=== PATIENT | male | born 1980 | race American Indian/Alaskan Native ===

== ENCOUNTER 2017-10-01 11:11 | Inpatient (IN) | payer OTHER, MEDICAID ==
[2017-10-01 11:25] VITALS: BMI 22.8
--- NOTE | 2017-10-01 11:34 | ED PDOC ---
Arrival/HPI - General Time Seen by Provider: 10/01/17 11:31 Historian: Patient - History of Present Illness Narrative History of Present Illness (Text): 10/01/17 11:46 Patient is a 37 yo male presents to the Emergency Department reportedly after having a witnessed seizure at his worksite prior to arrival. History is obtained from ambulance personnel. Reportedly the patient fell to the ground and "was shaking for 30 seconds". Patient currently denies any headache or chest pain or shortness of breath. Denies any numbness or weakness. He denies shakiness or tremors. States that he was "fine" when he went to work although states he did not eat or drink this morning. He states that he does smoke cigarettes and drinks alcohol, last drink he states was "this past weekend". Denies any prior medical history, specifically he denies prior history of seizures. Time/Duration: Prior to Arrival Symptom Onset: Sudden Past Medical History - Provider Review Nursing Documentation Reviewed: Yes Family/Social History - Physician Review Nursing Documentation Reviewed: Yes Family/Social History: No Known Family HX Allergies/Home Meds Allergies/Adverse Reactions: Allergies No Known Allergies Allergy (Verified 10/01/17 11:27) Home Medications: Home Meds Medication Instructions Recorded Confirmed No Known Home Med 10/01/17 10/01/17 Review of Systems - Review of Systems Constitutional: absent: Fatigue, Fevers Eyes: absent: Vision Changes ENT: absent: Hearing Changes Respiratory: absent: SOB Cardiovascular: absent: Chest Pain, Palpitations, Edema, RAYA Gastrointestinal: absent: Abdominal Pain, Nausea, Vomiting, Hematochezia, Hematemesis Genitourinary Male: absent: Dysuria Musculoskeletal: absent: Back Pain Skin: absent: Rash Neurological: Seizure. absent: Headache, Dizziness, Focal Weakness, Facial Droop Hemo/Lymphatic: absent: Easy Bleeding, Easy Bruising Psychiatric: absent: Depression, Suicidal Ideation Physical Exam Vital Signs Reviewed: Yes Vital Signs Temp Pulse Resp BP Pulse Ox 10/01/17 13:43 98 H 18 137/92 H 98 10/01/17 11:22 98.2 F 72 18 136/83 97 Temperature: Afebrile Respiratory Rate: Normal Mental Status: Positive for: other (oriented to person, place, not time, states year is "2009") Finger Stick Blood Glucose: 105 - Systems Exam Head: Present: Abrasion (abrasion to posterior scalp, no foreign body or bony deformity noted) Pupils: Present: PERRL Extroacular Muscles: Present: EOMI Ears: No: Erythema Mouth: Present: Other (no tongue laceration noted) Pharnyx: No: ERYTHEMA Neck: Present: Normal Range of Motion. No: Meningeal Signs, MIDLINE TENDERNESS Respiratory/Chest: Present: Clear to Auscultation. No: Respiratory Distress Cardiovascular: Present: Regular Rate and Rhythm, Murmurs Abdomen: No: Tenderness, Peritoneal Signs Rectal: No: Gross Blood Back: No: CVA Tenderness, Midline Tenderness Upper Extremity: No: Cyanosis, Edema, Deformity Lower Extremity: Present: NORMAL PULSES, Neurovascularly Intact. No: Edema, CALF TENDERNESS Neurological: Present: Motor Func Grossly Intact, Other (tremulous). No: Norm Deep Tendon Reflexes (hyperreflexive), Memory Normal Skin: Present: Abrasion Psychiatric: Present: Alert. No: Oriented x 3, Normal Concentration, Suicidal Ideation, Homicidal Ideation, Lethargic Medical Decision Making ED Course and Treatment: Patient evaluated upon arrival to ED. History obtained from ambulance personnel and patient. Patient cannot recollect event. States he felt "fine" this morning prior to going to work. He appears tremulous on initial exam. Denies any past medical history. Denies any prior seizures. Denies any allergies. Denies taking any medication currently. He states last drink of alcohol was this weekend. Ambulance personnel report that a carbon monoxide detector had possibly gone off at work today, although I have been unable to verify this. Patient placed on oxygen, although currently no respiratory distress, no hypoxia. He denies headache or chest pain or shortness of breath or shakiness. With permission, patient has allowed me to speak to his who he was talking on phone with during initial part of my exam. She expresses concern that patient has been drinking heavier recently but has not had a drink for several days. She also reports that he has no prior history of seizures. Given differential diagnosis that includes but is not limited to alcohol withdrawal seizure, iv ordered, ativan ordered, labs and CT ordered. Will continue serial exams. 10/01/17 12:12 Carboxyhemoglobin 4.9. Patient is alert and awake denies headache or visual symptoms. PATIENT IS A SMOKER, considered when evaluating this result, will continue oxygen, serial exams. 10/01/2017 13:02 Chest X-ray IMPRESSION: No active disease. Dictator: Erich Sellers MD 10/01/2017 13:[address] IMPRESSION: No intracranial hemorrhage. Right posterior parietal scalp contusion. Otherwise unremarkable examination. Dictator: Vasu Bonner MD 10/01/17 15:20 With patient's permission, patient's and [id number] updated with results and treatment plan. On re-exam, patient denies any pain or discomfort, but admits to drinking heavily daily. He has persistent but improved tremulousness. Patient had scalp wound irrigated with normal saline. Tetanus ordered. Wound superficial, no deep lacerations noted. Dressing applied. Case discussed with hospitalist, accepts admission to hospitalist service by DR. Cunningham. Patient on re-exam has no focal motor or sensory deficits. No slurred speech. Alert. No facial droop. No acute abdominal pain. Now oriented to person/place and time. - Lab Interpretations Lab Results: 10/01/17 11:40 10/01/17 11:40 Lab Results 10/01/17 12:02: pCO2 28 L, pO2 85.0, HCO3 15.5 L, ABG pH 7.35, ABG Total CO2 16.4 L, ABG O2 Saturation 97.9, ABG O2 Content 17.9, ABG Base Excess -8.6 L, ABG Hemoglobin 13.8, ABG Carboxyhemoglobin 4.9 H, POC ABG HHb (Measured) 2.0, ABG Methemoglobin 1.1, ABG O2 Capacity 18.3, Hgb O2 Saturation 92.0 L, FiO2 21.0 10/01/17 11:40: Salicylates < 1 L 10/01/17 11:40: PT 11.5, INR 1.00, APTT 28.9 10/01/17 11:40: WBC 6.3, RBC 4.67, Hgb 14.7, Hct 42.2, MCV 90.4, MCH 31.5, MCHC 34.8, RDW 14.8 H, Plt Count 117 L, MPV 9.7, Gran % 65.9, Lymph % (Auto) 21.7 L, [place] % (Auto) 9.3 H, Eos % (Auto) 1.8, Baso % (Auto) 1.3, Gran # 4.14, Lymph # ( Auto) 1.4, [place] # (Auto) 0.6, Eos # (Auto) 0.1, Baso # (Auto) 0.08 10/01/17 11:40: Acetaminophen < 10.0 L 10/01/17 11:40: Alcohol, Quantitative 88 H 10/01/17 11:40: Sodium 141, Potassium 3.2 L, Chloride 99, Carbon Dioxide 17 L, Anion Gap 28 H, BUN 7, Creatinine 1.1, Est GFR ( Amer) > 60, Est GFR (Non -Af Amer) > 60, Random Glucose 100, Calcium 9.4, Magnesium 2.0, Total Bilirubin 1.1, AST 315 H, ALT 143 H, Alkaline Phosphatase 102, Lactate Dehydrogenase 1145 H, Total Creatine Kinase 534 H, CK-MB (CK-2) 0.7, CK-MB (CK-2) % Cancelled, Troponin I < 0.01, Total Protein 7.6, Albumin 4.9 H, Globulin 2.6, Albumin/ Globulin Ratio 1.9 H, Amylase 107, Lipase 576 H I have reviewed the lab results: Yes - RAD Interpretation Radiology Orders: 10/01/17 11:37 HEAD W/O CONTRAST [CT] Stat 10/01/17 11:39 CHEST PORTABLE [RAD] Stat - Medication Orders Current Medication Orders: Acetaminophen (Tylenol 325mg Tab) 650 mg PO Q6 PRN PRN Reason: Pain, moderate (4-7) Famotidine (Pepcid) 20 mg PO BID [facility] Folic Acid (Folic Acid) 1 mg PO DAILY [facility] Heparin Sodium (Porcine) (Heparin) 5,000 units SC Q8 ANDREZ PRN Reason: Protocol Last Admin: 10/01/17 14:28 Dose: 5,000 units Subcutaneous Administrations Document 10/01/17 14:28 SRE (Rec: 10/01/17 14:28 SRE [id number]) Injection Site MAR Injection Site Left Abdomen Charges for Administration # of Subcutaneous Administrations 1 Folic Acid 1 mg/ Thiamine HCl 100 mg/ Multivitamins/Vitamin C 10 ml/ Dextrose 1 ,011.2 mls @ 100 mls/hr IV .Q10H7M [facility] Last Admin: 10/01/17 15:01 Dose: 100 mls/hr eMAR Start Stop Document 10/01/17 15:01 SRE (Rec: 10/01/17 15:01 SRE [id number]) Intravenous Solution Start Date 10/01/17 Start Time 15:01 Lorazepam (Ativan) 2 mg IVP Q6H ANDREZ PRN Reason: Protocol Last Admin: 10/01/17 14:27 Dose: 2 mg IVP Administration Document 10/01/17 14:27 SRE (Rec: 10/01/17 14:27 SRE [id number]) Charges for Administration # of IVP Administrations 1 Lorazepam (Ativan) 2 mg IVP Q3H PRN; Protocol PRN Reason: Anxiety Multivitamins (Thera Tab) 1 tab PO 0800 ANDREZ Nicotine (Nicoderm Cq) 1 patch TD DAILY ANDREZ Last Admin: 10/01/17 15:00 Dose: 1 patch MAR Transdermal Patch Site Document 10/01/17 15:00 SRE (Rec: 10/01/17 15:01 SRE [id number]) Transdermal Patch Site Transdermal Patch Site Left Outer Upper Arm Ondansetron HCl (Zofran Inj) 4 mg IVP Q6 PRN PRN Reason: Nausea/Vomiting Thiamine HCl (Vitamin B1 Tab) 50 mg PO DAILY ANDREZ Discontinued Medications Sodium Chloride (Sodium Chloride 0.9%) 500 mls @ 1,000 mls/hr IV .Q30M STA Stop: 10/01/17 12:11 Last Admin: 10/01/17 11:55 Dose: 1,000 mls/hr eMAR Start Stop Document 10/01/17 11:55 SRE (Rec: 10/01/17 11:55 SRE [id number]) Intravenous Solution Start Date 10/01/17 Start Time 11:55 End Date 10/01/17 End time 12:55 Total Infusion Time 60 Lorazepam (Ativan) 1 mg IVP ONCE ONE Stop: 10/01/17 11:43 Last Admin: 10/01/17 11:52 Dose: 1 mg IVP Administration Document 10/01/17 11:52 SRE (Rec: 10/01/17 11:52 SRE [id number]) Charges for Administration # of IVP Administrations 1 Lorazepam (Ativan) 1 mg IVP ONCE ONE Stop: 10/01/17 12:33 Last Admin: 10/01/17 12:47 Dose: 1 mg IVP Administration Document 10/01/17 12:47 SRE (Rec: 10/01/17 12:47 SRE [id number]) Charges for Administration # of IVP Administrations 1 Potassium Chloride (K-Dur 20 Meq Er Tab) 40 meq PO STAT STA Stop: 10/01/17 12:11 Last Admin: 10/01/17 12:46 Dose: 40 meq Tetanus/Reduced Diphtheria/Acell Pertussis (Boostrix Vaccine Inj) 0.5 ml IM .ONCE ONE Stop: 10/01/17 14:36 - Scribe Statement The provider has reviewed the documentation as recorded by the July Bowden Provider Scribe Attestation: All medical record entries made by the July were at my direction and personally dictated by me. I have reviewed the chart and agree that the record accurately reflects my personal performance of the history, physical exam, medical decision making, and the department course for this patient. I have also personally directed, reviewed, and agree with the discharge instructions and disposition. Disposition/Present on Arrival - Present on Arrival Any Indicators Present on Arrival: No - Disposition Have Diagnosis and Disposition been Completed?: Yes Diagnosis: Seizure, Alcohol withdrawal, Scalp abrasion Disposition: HOSPITALIZED Disposition Time: 14:00 Patient Plan: Admission, Telemetry Condition: SERIOUS
[2017-10-01] MEDS ORDERED: Sodium Chloride 0.9% 500 ML IV STA (11:42)
[2017-10-01 11:59] LABS: BASO # 0.08 K/mm3 (0.0-2.0); BASO % 1.3 % (0.0-3.0); EOS # 0.1 (0.0-0.7); EOS % 1.8 % (1.5-5.0); GRAN # 4.14 (1.4-6.5); GRAN % 65.9 % (50.0-68.0); HEMOGLOBIN 14.7 g/dL (14.0-18.0); LYMPH # 1.4 (1.2-3.4); LYMPH % 21.7 % (22.0-35.0); MEAN CELL VOLUME 90.4 fl (80.0-105.0); MEAN CORPUSCULAR HEMOGLOBIN 31.5 pg (25.0-35.0); MEAN CORPUSCULAR HGB CONC 34.8 g/dl (31.0-37.0); MEAN PLATELET VOLUME 9.7 fl (7.0-11.0); MONO # 0.6 (0.1-0.6); MONO % 9.3 % (1.0-6.0); RBC 4.67 10^6/uL (3.5-6.1); RED CELL DISTRIBUTION WIDTH 14.8 % (11.5-14.5); WHITE BLOOD COUNT 6.3 10^3/ul (4.5-11.0)
[2017-10-01 12:06] LABS: ARTERIAL BLOOD GAS HCO3 15.5 mmol/L (21-28); ARTERIAL BLOOD GAS HEMOGLOBIN 13.8 g/dL (11.7-17.4); ARTERIAL BLOOD GAS O2 CAPACITY 18.3 mL/dl (16-24); ARTERIAL BLOOD GAS O2 CONTENT 17.9 ML/dl (15-23); ARTERIAL BLOOD GAS O2 SAT 97.9 % (95-98); ARTERIAL BLOOD GAS PCO2 28 mm/Hg (35-45); ARTERIAL BLOOD GAS PH 7.35 (7.35-7.45); ARTERIAL BLOOD GAS TCO2 16.4 mmol.L (22-28)
[2017-10-01 12:08] LABS: ALB/GLOB RATIO 1.9 (1.1-1.8); ALBUMIN 4.9 g/dL (3.0-4.8); ALT/SGPT 143 U/L (7-56); AMYLASE 107 U/L (35-125); AST/SGOT 315 U/L (17-59); BLOOD UREA NITROGEN 7 mg/dL (7-21); CALCIUM 9.4 mg/dL (8.4-10.5); GFR AFRICAN-AMERICAN > 60; GFR NON-AFRICAN AMERICAN > 60; LIPASE 576 U/L (23-300)
[2017-10-01] MEDS ORDERED: Potassium Chloride 20 mEq ER Tab PO STA (12:10)
[2017-10-01 12:19] LABS: TROPONIN I < 0.01 ng/mL
[2017-10-01 12:34] LABS: CK-MB 0.7 ng/mL (0.0-3.6)
[2017-10-01 12:50] LABS: PARTIAL THROMBOPLASTIN TIME 28.9 Seconds (25.1-36.5); PROTHROMBIN TIME 11.5 SECONDS (9.4-12.5)
--- NOTE | 2017-10-01 13:03 | RAD ---
HISTORY: seizure COMPARISON: No prior. FINDINGS: LUNGS: No active pulmonary disease. PLEURA: No significant pleural effusion identified, no pneumothorax apparent. CARDIOVASCULAR: Normal. OSSEOUS STRUCTURES: No significant abnormalities. VISUALIZED UPPER ABDOMEN: Normal. OTHER FINDINGS: None. IMPRESSION: No active disease.
--- NOTE | 2017-10-01 13:14 | CT ---
PROCEDURE: CT HEAD WITHOUT CONTRAST. HISTORY: new onset seizure, posterior head trauma COMPARISON: None available. TECHNIQUE: Axial computed tomography images were obtained through the head/brain without intravenous contrast. Radiation dose: Total exam DLP = 869.57 mGy-cm. This CT exam was performed using one or more of the following dose reduction techniques: Automated exposure control, adjustment of the mA and/or kV according to patient size, and/or use of iterative reconstruction technique. FINDINGS: HEMORRHAGE: No intracranial hemorrhage. BRAIN: No mass effect or edema. No atrophy or chronic microvascular ischemic changes. VENTRICLES: Unremarkable. No hydrocephalus. CALVARIUM: No calvarial fracture. There is a scalp contusion in the right posterior parietal region. PARANASAL SINUSES: Unremarkable as visualized. No significant inflammatory changes. MASTOID AIR CELLS: Unremarkable as visualized. No inflammatory changes. OTHER FINDINGS: None. IMPRESSION: No intracranial hemorrhage. Right posterior parietal scalp contusion. Otherwise unremarkable examination.
--- NOTE | 2017-10-01 13:24 | CP.PCM.HP ---
<Jaye Pearce - Last Filed: 10/01/17 14:10> History of Present Illness - History of Present Illness History of Present Illness: IM H & P for Dr. Catalina Pearce, PGY-1 Pt S & E at bedside with attending. History as per pt and pt's spouse, EMR. 37M w/PMH sig for ETOH abuse admitted s/p witnessed seizure at job site. Pt left home for job site at 0830am this morning, no problems. 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 EMS was called. Admits to LOC- does not remember event or what lead up to the event, next thing pt remember is being in ambulance. Admits to Left anterior shoulder pain, baseline shaking of limbs (increased from baseline now), blurry vision, URI symptoms (cough, rhinorhea), hunger, numbness of feet, increased lethargy (as per spouse), nausea (as per spouse). Denies Chest pain, SOB, palpitations, change in bowel or bladder habits, Other complaints. PMH: Denies PSH: Denies All: NKDA SH: Admits to tobacco use - #5-6 daily x 15 yrs; admits to ETOH use- #2-3 beers + hard liquour (2 bottles) daily x 25 yr; denies illicit drug use Present on Admission - Present on Admission Any Indicators Present on Admission: No History of DVT/PE: No History of Uncontrolled Diabetes: No Urinary Catheter: No Decubitus Ulcer Present: No Review of Systems - Review of Systems All systems: reviewed and no additional remarkable complaints except - Constitutional Constitutional: Headache. absent: Chills, Fever, Weakness - EENT Eyes: Blurred Vision, Change in Vision Ears: absent: Dizziness Nose/Mouth/Throat: Mouth Pain. absent: Tongue Swelling - Cardiovascular Cardiovascular: absent: Chest Pain, Leg Edema, Palpitations - Respiratory Respiratory: Cough - Gastrointestinal Gastrointestinal: Nausea. absent: Abdominal Pain, Change in Bowel Habits, Constipation, Diarrhea, Hematemesis, Vomiting - Genitourinary Genitourinary: absent: Change in Urinary Stream, Dysuria - Musculoskeletal Musculoskeletal: Numbness (feet). absent: Back Pain - Integumentary Integumentary: New Lesions (posterior scalp, lower inner lip small laceration) - Neurological Neurological: Numbness Past Patient History - Past Social History Smoking Status: Light Smoker < 10 Cigarettes Daily - PSYCHIATRIC Hx Substance Use: No - SURGICAL HISTORY Hx Surgeries: No Meds Allergies/Adverse Reactions: Allergies Allergy/AdvReac Type Severity Reaction Status Date / Time No Known Allergies Allergy Verified 10/01/17 11:27 Physical Exam - Constitutional Appears: Non-toxic, No Acute Distress - Head Exam Head Exam: absent: ATRAUMATIC, NORMAL INSPECTION, NORMOCEPHALIC Additional comments: 3-4 superficial lacerations of posterior scalp, average length 1cm - Eye Exam Eye Exam: EOMI, Normal appearance, Nystagmus - ENT Exam ENT Exam: Mucous Membranes Moist. absent: Normal Exam (small laceration of inner lower lip- superficial) - Neck Exam Neck exam: Positive for: Full Rom, Normal Inspection - Respiratory Exam Respiratory Exam: Clear to Auscultation Bilateral, NORMAL BREATHING PATTERN - Cardiovascular Exam Cardiovascular Exam: REGULAR RHYTHM, +S1, +S2 - GI/Abdominal Exam GI & Abdominal Exam: Hernia (small umbilical), Normal Bowel Sounds, Soft. absent: Distended, Tenderness - Extremities Exam Extremities exam: Positive for: normal capillary refill, tenderness (right anterior shoulder ). Negative for: normal inspection, pedal edema - Back Exam Back exam: NORMAL INSPECTION. absent: CVA tenderness (L), CVA tenderness (R), paraspinal tenderness, vertebral tenderness - Neurological Exam Neurological exam: Alert, CN II-XII Intact, Oriented x3 - Psychiatric Exam Psychiatric exam: Normal Affect, Normal Mood - Skin Skin Exam: Dry, Intact, Normal Color, Warm Results - Vital Signs Recent Vital Signs: Last Vital Signs Temp 98.2 F 10/01/17 11:22 Pulse 72 10/01/17 11:22 Resp 18 10/01/17 11:22 BP 136/83 10/01/17 11:22 Pulse Ox 97 10/01/17 11:22 - Labs Result Diagrams: 10/01/17 11:40 10/01/17 11:40 Assessment & Plan - Assessment and Plan (Free Text) Assessment: 37M w/PMH sig for ETOH abuse s/p witnessed seizure w/LOC Plan: Seizure in setting of ETOH abuse Banana bag MV/folic acid/B1 vitamin to be started 10/02 Ativan 2mg Q6H ANDREZ, 2mg Q3H PRN Zofran PRN FU UDS FU EEG NPO CIWA protocol Fall risk protocol Aspiration precautions Seizure precautions CT brain negative for hemorrhage, Right posterior parietal scalp contusion Neurology consulted Left shoulder pain Fu L shoulder x-ray Tylenol PRN Nicotine abuse Nicotine patch Monitor GI/DVT ppx SCD Heparin Pepcid Dispo Admit to tele VS Q6H Neuro checks Q4H Resuscitation status: Full PT eval on 10/02 DW attending Portia, PGY-1 - Date & Time Date: 10/01/17 Time: 14:14 Decision To Admit - Pt Status Changed To: Hospital Disposition Of: Inpatient Admission - Admit Certification Admit to Inpatient:: After my assessment, the patient will require hospitalization for at least two midnights. This is because of the severity of symptoms shown, intensity of services needed, and/or the medical risk in this patient being treated as an outpatient. - . Bed Request Type: Telemetry Admitting Physician: Jj Cunningham <Jj Cunningham - Last Filed: 10/02/17 07:47> Results - Vital Signs Recent Vital Signs: Last Vital Signs Temp 99.3 F 10/02/17 00:01 Pulse 99 H 10/02/17 02:00 Resp 18 10/02/17 00:01 BP 165/78 H 10/02/17 00:01 Pulse Ox 97 10/01/17 18:00 - Labs Result Diagrams: 10/02/17 05:30 10/02/17 05:30 Labs: Laboratory Results - last 24 hr 10/01/17 10/01/17 10/02/17 13:53 13:53 05:30 WBC 6.7 RBC 4.81 Hgb 15.2 Hct 42.4 MCV 88.1 MCH 31.6 MCHC 35.8 RDW 14.4 Plt Count 104 L MPV 9.9 Gran % 71.8 H Lymph % (Auto) 12.5 L [place] % (Auto) 13.1 H Eos % (Auto) 1.9 Baso % (Auto) 0.7 Gran # 4.81 Lymph # (Auto) 0.8 L [place] # (Auto) 0.9 H Eos # (Auto) 0.1 Baso # (Auto) 0.05 Sodium Potassium Chloride Carbon Dioxide Anion Gap BUN Creatinine Est GFR ( Amer) Est GFR (Non-Af Amer) Random Glucose Calcium Magnesium Total Bilirubin AST ALT Alkaline Phosphatase Total Protein Albumin Globulin Albumin/Globulin Ratio Urine Color Yellow Urine Appearance Turbid Urine pH 6.0 Ur Specific [place] 1.025 Urine Protein 100 H Urine Glucose (UA) Negative Urine Ketones >=80 Urine Blood Small H Urine Nitrate Negative Urine Bilirubin Negative Urine Urobilinogen 1.0 H Ur Leukocyte Esterase Negative Urine RBC 0 - 2 Urine WBC 0 - 2 Urine Opiates Screen Negative Urine Methadone Screen Negative Ur Barbiturates Screen Negative Ur Phencyclidine Scrn Negative Ur Amphetamines Screen Negative U Benzodiazepines Scrn Negative U Oth Cocaine Metabols Negative U Cannabinoids Screen Negative 10/02/17 10/02/17 05:30 06:00 WBC RBC Hgb Hct MCV MCH MCHC RDW Plt Count MPV Gran % Lymph % (Auto) [place] % (Auto) Eos % (Auto) Baso % (Auto) Gran # Lymph # (Auto) [place] # (Auto) Eos # (Auto) Baso # (Auto) Sodium 136 Potassium 3.2 L Chloride 96 L Carbon Dioxide 25 Anion Gap 19 BUN 4 L Creatinine 0.8 Est GFR ( Amer) > 60 Est GFR (Non-Af Amer) > 60 Random Glucose 102 Calcium 9.0 Magnesium 2.1 Total Bilirubin 1.6 H AST 226 H D ALT 123 H Alkaline Phosphatase 96 Total Protein 7.6 Albumin 4.6 Globulin 2.9 Albumin/Globulin Ratio 1.6 Urine Color Urine Appearance Urine pH Ur Specific [place] Urine Protein Urine Glucose (UA) Urine Ketones Urine Blood Urine Nitrate Urine Bilirubin Urine Urobilinogen Ur Leukocyte Esterase Urine RBC Urine WBC Urine Opiates Screen Urine Methadone Screen Ur Barbiturates Screen Ur Phencyclidine Scrn Ur Amphetamines Screen U Benzodiazepines Scrn U Oth Cocaine Metabols U Cannabinoids Screen Attending/Attestation - Attestation I have personally seen and examined this patient.: Yes I have fully participated in the care of the patient.: Yes I have reviewed all pertinent clinical information: Yes Notes (Text): 10/02/17 07:44 Attending note; Patient seen and examined with resident in ER. Patient is a 37-year-old male admitted after having a witnessed seizure at work. Patient with a history of long-standing alcohol abuse. Patient was initially postictal in the ER. Had laceration in the back of the head. CT head is negative. Currently patient is alert and awake. Able to give some history. Not in any acute distress. Patient started on standing dose of IV Ativan with when necessary ordered. Continue to monitor closely in telemetry with CIWA protocol. Nothing by mouth. Continue IV fluids. Seizure/fall/aspiration precaution. Complete alcohol cessation is strongly advised. Neurology evaluation requested. Case discussed with patient's in detail. Upon discharge the patient will follow up with PMD in [place].
[2017-10-01 13:56] LABS: URINE BILIRUBIN NEGATIVE (NEGATIVE); URINE BLOOD SMALL (NEGATIVE); URINE GLUCOSE (UA) NEGATIVE (NEGATIVE); URINE LEUKOCYTE ESTERASE NEGATIVE Leu/uL (NEGATIVE); URINE PROTEIN 100 mg/dL (<30 mg/dL)
[2017-10-01 13:57] LABS: URINE APPEARANCE TURBID (CLEAR); URINE COLOR YELLOW (YELLOW)
[2017-10-01 14:10] LABS: URINE RBC 0 - 2 /hpf (0-2); URINE WBC 0 - 2 /hpf (0-6)
[2017-10-01] MEDS ORDERED: Folic Acid 1 MG, Thiamine 100 MG, Multivitamin (MVI) 10 ML in Dextrose 5% In Water 1,00... IV SCH (14:15)
[2017-10-01 14:16] LABS: BARBITURATES, UR NEGATIVE (NEGATIVE); BENZODIAZEPINES, UR NEGATIVE (NEGATIVE); OPIATES, UR NEGATIVE (NEGATIVE); PHENCYCLIDINE, UR NEGATIVE (NEGATIVE)
[2017-10-01] MEDS ORDERED: TDAP Vaccine 0.5 mL Syr IM ONE (14:35)
--- NOTE | 2017-10-01 16:53 | RAD ---
PROCEDURE: Radiographs of the Left Shoulder HISTORY: left shoulder pain COMPARISON: No prior. FINDINGS: BONES: Normal. No fracture. JOINTS: Normal. Glenohumeral and acromioclavicular joints preserved. No osteoarthritis. SOFT TISSUES: Normal. OTHER FINDINGS: None. IMPRESSION: Normal radiographs of the left shoulder.
--- NOTE | 2017-10-01 23:14 | CARD ---
APPROVED REPORT EKG Measurement Heart [id number] <Conclusion> Normal sinus rhythm Normal ECG
[2017-10-02] MEDS ORDERED: DiphenhydrAMINE 50 mg/ml Inj IVP ONE (06:08)
[2017-10-02 06:11] LABS: BASO # 0.05 K/mm3 (0.0-2.0); BASO % 0.7 % (0.0-3.0); EOS # 0.1 (0.0-0.7); EOS % 1.9 % (1.5-5.0); GRAN # 4.81 (1.4-6.5); GRAN % 71.8 % (50.0-68.0); HEMOGLOBIN 15.2 g/dL (14.0-18.0); LYMPH # 0.8 (1.2-3.4); LYMPH % 12.5 % (22.0-35.0); MEAN CELL VOLUME 88.1 fl (80.0-105.0); MEAN CORPUSCULAR HEMOGLOBIN 31.6 pg (25.0-35.0); MEAN CORPUSCULAR HGB CONC 35.8 g/dl (31.0-37.0); MEAN PLATELET VOLUME 9.9 fl (7.0-11.0); MONO # 0.9 (0.1-0.6); MONO % 13.1 % (1.0-6.0); RBC 4.81 10^6/uL (3.5-6.1); RED CELL DISTRIBUTION WIDTH 14.4 % (11.5-14.5); WHITE BLOOD COUNT 6.7 10^3/ul (4.5-11.0)
[2017-10-02 06:21] LABS: ALB/GLOB RATIO 1.6 (1.1-1.8); ALBUMIN 4.6 g/dL (3.0-4.8); ALT/SGPT 123 U/L (7-56); AST/SGOT 226 U/L (17-59); BLOOD UREA NITROGEN 4 mg/dL (7-21); GFR AFRICAN-AMERICAN > 60; GFR NON-AFRICAN AMERICAN > 60
[2017-10-02] MEDS ORDERED: Potassium Chloride 20 mEq ER Tab PO STA (06:42)
--- NOTE | 2017-10-02 08:18 | CP.PCM.CON ---
<Davis Laneima - Last Filed: 10/02/17 17:49> History of Present Illness - History of Present Illness History of Present Illness: Neurology Consult note for Dr. Jordan Reason for consult: seizures Please note history is limited as patient is agitated and altered due to alcohol withdrawal 37yo male PMHx EtOH abuse admitted for witnessed seizure at his job site. 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 As per EMR patient did experience LOC but did not recall any aura leading up to the event but did remember being in the ambulance. As per ED note patient's last drink was over the weekend and the last time he was at baseline was the morning of admission prior to going to work. ROS unobtainable secondary to patient condition. PMHx: EtOH abuse PSurgHx: unobtainable ALL: NKDA Meds: pls see chart SocHx: Admits to tobacco use - #5-6 daily x 15 yrs; admits to ETOH use- #2-3 beers + hard liquor (2 bottles) daily x 25 yr; denies illicit drug use FamHx: unobtainable Review of Systems - Review of Systems Systems not reviewed;Unavailable: Altered Mental Status Past Patient History - Past Social History Smoking Status: Heavy Smoker > 10 Cigarettes Daily - PULMONARY Other/Comment: smokes >10 cigarettes a day - MUSCULOSKELETAL/RHEUMATOLOGICAL Hx Falls: Yes - PSYCHIATRIC Hx Substance Use: No - SURGICAL HISTORY Hx Surgeries: No Meds Allergies/Adverse Reactions: Allergies Allergy/AdvReac Type Severity Reaction Status Date / Time No Known Allergies Allergy Verified 10/01/17 11:27 - Medications Medications: Current Medications Acetaminophen (Tylenol 325mg Tab) 650 mg PO Q6 PRN PRN Reason: Pain, moderate (4-7) Famotidine (Pepcid) 20 mg PO BID [facility] Last Admin: 10/01/17 18:00 Dose: Not Given Folic Acid (Folic Acid) 1 mg PO DAILY [facility] Heparin Sodium (Porcine) (Heparin) 5,000 units SC Q8 ANDREZ PRN Reason: Protocol Last Admin: 10/02/17 07:53 Dose: 5,000 units Folic Acid 1 mg/ Thiamine HCl 100 mg/ Multivitamins/Vitamin C 10 ml/ Potassium Chloride 40 meq/ Dextrose 1,031.2 mls @ 100 mls/hr IV .[id number] [facility] Potassium Chloride (Potassium Chloride 10 Meq/100 Ml) 10 meq in 100 mls @ 50 mls/hr IVPB ONCE ONE Stop: 10/02/17 09:37 Lorazepam (Ativan) 2 mg IVP Q3H PRN; Protocol PRN Reason: Anxiety Last Admin: 10/02/17 05:35 Dose: 2 mg Lorazepam (Ativan) 2 mg IVP Q6 ANDREZ PRN Reason: Protocol Multivitamins (Thera Tab) 1 tab PO 0800 [facility] Nicotine (Nicoderm Cq) 1 patch TD DAILY [facility] Last Admin: 10/01/17 15:00 Dose: 1 patch Ondansetron HCl (Zofran Inj) 4 mg IVP Q6 PRN PRN Reason: Nausea/Vomiting Last Admin: 10/01/17 15:56 Dose: 4 mg Potassium Chloride (K-Dur 20 Meq Er Tab) 40 meq PO ONCE ONE Stop: 10/02/17 11:46 Thiamine HCl (Vitamin B1 Tab) 50 mg PO DAILY [facility] Physical Exam - Constitutional Appears: In Acute Distress, Combative, Agitated, Confused, Other (physical exam unobtainable as patient is going through withdrawals) Results - Vital Signs Recent Vital Signs: Last Vital Signs Temp 99.6 F 10/02/17 06:00 Pulse 114 H 10/02/17 06:00 Resp 18 10/02/17 06:00 BP 168/114 H 10/02/17 06:00 Pulse Ox 97 10/02/17 06:00 - Labs Result Diagrams: 10/02/17 05:30 10/02/17 05:30 Labs: Laboratory Results - last 24 hr 10/01/17 10/01/17 10/02/17 13:53 13:53 05:30 WBC 6.7 RBC 4.81 Hgb 15.2 Hct 42.4 MCV 88.1 MCH 31.6 MCHC 35.8 RDW 14.4 Plt Count 104 L MPV 9.9 Gran % 71.8 H Lymph % (Auto) 12.5 L [place] % (Auto) 13.1 H Eos % (Auto) 1.9 Baso % (Auto) 0.7 Gran # 4.81 Lymph # (Auto) 0.8 L [place] # (Auto) 0.9 H Eos # (Auto) 0.1 Baso # (Auto) 0.05 Sodium Potassium Chloride Carbon Dioxide Anion Gap BUN Creatinine Est GFR ( Amer) Est GFR (Non-Af Amer) Random Glucose Calcium Magnesium Total Bilirubin AST ALT Alkaline Phosphatase Total Protein Albumin Globulin Albumin/Globulin Ratio Urine Color Yellow Urine Appearance Turbid Urine pH 6.0 Ur Specific [place] 1.025 Urine Protein 100 H Urine Glucose (UA) Negative Urine Ketones >=80 Urine Blood Small H Urine Nitrate Negative Urine Bilirubin Negative Urine Urobilinogen 1.0 H Ur Leukocyte Esterase Negative Urine RBC 0 - 2 Urine WBC 0 - 2 Urine Opiates Screen Negative Urine Methadone Screen Negative Ur Barbiturates Screen Negative Ur Phencyclidine Scrn Negative Ur Amphetamines Screen Negative U Benzodiazepines Scrn Negative U Oth Cocaine Metabols Negative U Cannabinoids Screen Negative 10/02/17 10/02/17 05:30 06:00 WBC RBC Hgb Hct MCV MCH MCHC RDW Plt Count MPV Gran % Lymph % (Auto) [place] % (Auto) Eos % (Auto) Baso % (Auto) Gran # Lymph # (Auto) [place] # (Auto) Eos # (Auto) Baso # (Auto) Sodium 136 Potassium 3.2 L Chloride 96 L Carbon Dioxide 25 Anion Gap 19 BUN 4 L Creatinine 0.8 Est GFR ( Amer) > 60 Est GFR (Non-Af Amer) > 60 Random Glucose 102 Calcium 9.0 Magnesium 2.1 Total Bilirubin 1.6 H AST 226 H D ALT 123 H Alkaline Phosphatase 96 Total Protein 7.6 Albumin 4.6 Globulin 2.9 Albumin/Globulin Ratio 1.6 Urine Color Urine Appearance Urine pH Ur Specific [place] Urine Protein Urine Glucose (UA) Urine Ketones Urine Blood Urine Nitrate Urine Bilirubin Urine Urobilinogen Ur Leukocyte Esterase Urine RBC Urine WBC Urine Opiates Screen Urine Methadone Screen Ur Barbiturates Screen Ur Phencyclidine Scrn Ur Amphetamines Screen U Benzodiazepines Scrn U Oth Cocaine Metabols U Cannabinoids Screen Assessment & Plan - Assessment and Plan (Free Text) Assessment: 37yo male PMHx EtOH abuse admitted for witnessed seizure at his job site. Neuro consulted for seizures Plan: -likely alcohol withdrawal seizure -Head CT: no intracranial hemorrhage. Right posterior parietal scalp contusion. Otherwise unremarkable. -f/u MRI when patient is stable -f/u EEG when patient is stable -Ativan for seizures -NPO -CIWA protocol -Aspiration and Seizure precautions -Fall Risk -Alcohol/drug cessation counseling -continue management as per primary -recommend ICU eval for severe withdrawal Discussed with Dr. Julian Lane pgy2 <Link Jordan - Last Filed: 10/02/17 18:43> Meds - Medications Medications: Current Medications Acetaminophen (Tylenol 325mg Tab) 650 mg PO Q6 PRN PRN Reason: Pain, moderate (4-7) Enoxaparin Sodium (Lovenox) 30 mg SC DAILY [facility] PRN Reason: Protocol Last Admin: 10/02/17 14:50 Dose: 30 mg Famotidine (Pepcid) 20 mg PO BID [facility] Last Admin: 10/02/17 18:05 Dose: Not Given Folic Acid (Folic Acid) 1 mg PO DAILY [facility] Last Admin: 10/02/17 09:32 Dose: Not Given Folic Acid 1 mg/ Thiamine HCl 100 mg/ Multivitamins/Vitamin C 10 ml/ Potassium Chloride 40 meq/ Dextrose 1,031.2 mls @ 100 mls/hr IV .[id number] [facility] Last Admin: 10/02/17 11:11 Dose: 100 mls/hr Dexmedetomidine HCl (Precedex 400mcg/100ml) 400 mcg in 100 mls @ 3.132 mls/hr IV .Q24H PRN; Protocol; 0.2 MCG/KG/HR PRN Reason: Symptoms of alcohol withdrawl Last Admin: 10/02/17 14:15 Dose: 0.2 mcg/kg/hr, 3.132 mls/hr Lorazepam (Ativan) 2 mg IVP Q3H PRN; Protocol PRN Reason: Anxiety Last Admin: 10/02/17 12:40 Dose: 2 mg Multivitamins (Thera Tab) 1 tab PO 0800 [facility] Last Admin: 10/02/17 09:22 Dose: Not Given Nicotine (Nicoderm Cq) 1 patch TD DAILY [facility] Last Admin: 10/02/17 09:58 Dose: 1 patch Ondansetron HCl (Zofran Inj) 4 mg IVP Q6 PRN PRN Reason: Nausea/Vomiting Last Admin: 10/01/17 15:56 Dose: 4 mg Thiamine HCl (Vitamin B1 Tab) 50 mg PO DAILY [facility] Last Admin: 10/02/17 09:22 Dose: Not Given Results - Vital Signs Recent Vital Signs: Last Vital Signs Temp 97.6 F 10/02/17 15:29 Pulse 101 H 10/02/17 18:00 Resp 12 10/02/17 18:00 BP 130/86 10/02/17 18:00 Pulse Ox 85 L 10/02/17 18:00 - Labs Result Diagrams: 10/02/17 05:30 10/02/17 05:30 Labs: Laboratory Results - last 24 hr 10/02/17 10/02/17 10/02/17 05:30 05:30 05:30 WBC 6.7 RBC 4.81 Hgb 15.2 Hct 42.4 MCV 88.1 MCH 31.6 MCHC 35.8 RDW 14.4 Plt Count 104 L MPV 9.9 Gran % 71.8 H Lymph % (Auto) 12.5 L [place] % (Auto) 13.1 H Eos % (Auto) 1.9 Baso % (Auto) 0.7 Gran # 4.81 Lymph # (Auto) 0.8 L [place] # (Auto) 0.9 H Eos # (Auto) 0.1 Baso # (Auto) 0.05 pCO2 pO2 HCO3 ABG pH ABG Total CO2 ABG O2 Saturation ABG O2 Content ABG Base Excess ABG Hemoglobin ABG Carboxyhemoglobin POC ABG HHb (Measured) ABG Methemoglobin ABG O2 Capacity Hgb O2 Saturation FiO2 Sodium 136 Potassium 3.2 L Chloride 96 L Carbon Dioxide 25 Anion Gap 19 BUN 4 L Creatinine 0.8 Est GFR ( Amer) > 60 Est GFR (Non-Af Amer) > 60 Random Glucose 102 Calcium 9.0 Magnesium Total Bilirubin 1.6 H AST 226 H D ALT 123 H Alkaline Phosphatase 96 Total Creatine Kinase 611 H CK-MB (CK-2) 0.9 CK-MB (CK-2) % Cancelled Total Protein 7.6 Albumin 4.6 Globulin 2.9 Albumin/Globulin Ratio 1.6 10/02/17 10/02/17 06:00 15:15 WBC RBC Hgb Hct MCV MCH MCHC RDW Plt Count MPV Gran % Lymph % (Auto) [place] % (Auto) Eos % (Auto) Baso % (Auto) Gran # Lymph # (Auto) [place] # (Auto) Eos # (Auto) Baso # (Auto) pCO2 32 L pO2 181.0 H HCO3 23.3 ABG pH 7.47 H ABG Total CO2 24.3 ABG O2 Saturation 99.9 H ABG O2 Content 21.0 ABG Base Excess 0.4 ABG Hemoglobin 15.2 ABG Carboxyhemoglobin 1.8 H POC ABG HHb (Measured) 0.1 ABG Methemoglobin 1.3 ABG O2 Capacity 21.0 Hgb O2 Saturation 96.7 FiO2 28.0 Sodium Potassium Chloride Carbon Dioxide Anion Gap BUN Creatinine Est GFR ( Amer) Est GFR (Non-Af Amer) Random Glucose Calcium Magnesium 2.1 Total Bilirubin AST ALT Alkaline Phosphatase Total Creatine Kinase CK-MB (CK-2) CK-MB (CK-2) % Total Protein Albumin Globulin Albumin/Globulin Ratio Attending/Attestation - Attestation I have personally seen and examined this patient.: Yes I have fully participated in the care of the patient.: Yes I have reviewed all pertinent clinical information: Yes
--- NOTE | 2017-10-02 08:41 | CP.PCM.PN ---
<RichiePapito - Last Filed: 10/02/17 11:52> Subjective - Date & Time of Evaluation Date of Evaluation: 10/02/17 Time of Evaluation: 08:00 - Subjective Subjective: PGY1 Medicine Note for Dr. Cunningham Patient seen and examined at bedside. Overnight patient was agitated and pulled out IV access 5 times. CIWA ranged from 19-24. Code tisha was called this morning bc patient jumped out of bed. Patient unable to follow verbal commands. Patient CIWA score was 24 mid morning. ICU consulted for EtOh withdrawal management with precedex. He is on 2 point restraint with [employer] monitoring. Objective - Vital Signs/Intake and Output Vital Signs (last 24 hours): Temp Pulse Resp BP Pulse Ox 99.6 F 114 H 18 168/114 H 97 10/02/17 06:00 10/02/17 06:00 10/02/17 06:00 10/02/17 06:00 10/02/17 06:00 Intake and Output: 10/02/17 10/02/17 06:59 18:59 Intake Total 0 Output Total 1250 Balance -1250 - Medications Medications: Current Medications Acetaminophen (Tylenol 325mg Tab) 650 mg PO Q6 PRN PRN Reason: Pain, moderate (4-7) Famotidine (Pepcid) 20 mg PO BID [facility] Last Admin: 10/01/17 18:00 Dose: Not Given Folic Acid (Folic Acid) 1 mg PO DAILY [facility] Heparin Sodium (Porcine) (Heparin) 5,000 units SC Q8 [facility]RE[facility] PRN Reason: Protocol Last Admin: 10/02/17 07:53 Dose: 5,000 units Folic Acid 1 mg/ Thiamine HCl 100 mg/ Multivitamins/Vitamin C 10 ml/ Potassium Chloride 40 meq/ Dextrose 1,031.2 mls @ 100 mls/hr IV .[id number] [facility] Potassium Chloride (Potassium Chloride 10 Meq/100 Ml) 10 meq in 100 mls @ 50 mls/hr IVPB ONCE ONE Stop: 10/02/17 09:37 Lorazepam (Ativan) 2 mg IVP Q3H PRN; Protocol PRN Reason: Anxiety Last Admin: 10/02/17 05:35 Dose: 2 mg Lorazepam (Ativan) 2 mg IVP Q6 [facility] PRN Reason: Protocol Multivitamins (Thera Tab) 1 tab PO 0800 [facility] Nicotine (Nicoderm Cq) 1 patch TD DAILY [facility] Last Admin: 10/01/17 15:00 Dose: 1 patch Ondansetron HCl (Zofran Inj) 4 mg IVP Q6 PRN PRN Reason: Nausea/Vomiting Last Admin: 10/01/17 15:56 Dose: 4 mg Potassium Chloride (K-Dur 20 Meq Er Tab) 40 meq PO ONCE ONE Stop: 10/02/17 11:46 Thiamine HCl (Vitamin B1 Tab) 50 mg PO DAILY [facility] - Labs Labs: 10/02/17 05:30 10/02/17 05:30 PT 11.5 SECONDS (9.4-12.5) 10/01/17 11:40 INR 1.00 (0.93-1.08) 10/01/17 11:40 APTT 28.9 Seconds (25.1-36.5) 10/01/17 11:40 - Constitutional Appears: Agitated - Head Exam Head Exam: ATRAUMATIC, NORMOCEPHALIC - Eye Exam Eye Exam: Normal appearance - ENT Exam ENT Exam: Mucous Membranes Moist - Respiratory Exam Respiratory Exam: Clear to Ausculation Bilateral, NORMAL BREATHING PATTERN - Cardiovascular Exam Cardiovascular Exam: Tachycardia - GI/Abdominal Exam GI & Abdominal Exam: Soft, Normal Bowel Sounds. absent: Tenderness - Extremities Exam Extremities Exam: Normal Capillary Refill - Back Exam Back Exam: absent: CVA tenderness (L), CVA tenderness (R) - Neurological Exam Neurological Exam: Alert, Awake Additional comments: Neuro limited due to patient cooperation - Psychiatric Exam Psychiatric exam: Agitated - Skin Skin Exam: Dry, Intact, Warm Assessment and Plan - Assessment and Plan (Free Text) Assessment: 37M with PMH of ETOH abuse [place] [facility] [place] likely secondary to EtOH withdrawal Plan: 1. Seizures due to ETOH withdrawal Ativan 2mg IVP Q4H [facility] Ativan 2mg IVP Q3H PRN Zofran PRN UDS negative MARTHA 88 on admission f/u EEG CIWA protocol Fall risk protocol Aspiration precautions Seizure precautions CT brain negative for hemorrhage, Right posterior parietal scalp contusion Neurology consult, Dr. Lion, help appreciated Left shoulder pain secondary to seizure - L shoulder x-ray negative Tylenol PRN CK trending upwards 500s to 600s 2. EtOH withdrawal ICU consult, Dr. Mabry, help appreciated Banana bag 100 cc/hr MVM folic acid Thiamine Ativan 2mg IVP Q4H [facility] Ativan 2mg IVP Q3H PRN Zofran PRN UDS negative MARTHA 88 on admission f/u EEG CIWA protocol Fall risk protocol Aspiration precautions Seizure precautions 3. Mild EtoH hepatitis AST 226 ALT 123 t. bili 1.6 INR 1 No need for steroid 4. Nicotine abuse Nicotine patch Monitor GI/DVT ppx SCD Heparin Pepcid Disposition: 1.) Pending ICU consult Discussed case with Dr. Marisa Quiroz PGY1 <Jj Cunningham - Last Filed: 10/03/17 16:19> Objective - Vital Signs/Intake and Output Vital Signs (last 24 hours): Temp Pulse Resp BP Pulse Ox 99 F 95 H 16 131/90 96 10/03/17 14:00 10/03/17 14:00 10/03/17 14:00 10/03/17 14:00 10/03/17 14:00 Intake and Output: 10/03/17 10/03/17 06:59 18:59 Intake Total 1237 85 Output Total 600 Balance 637 85 - Medications Medications: Current Medications Al Hydrox/Mg Hydrox/Simethicone 30 ml/Diphenhydramine HCl 75 mg/Lidocaine 30 ml 0 ml PO Q2H PRN PRN Reason: Mouth/Throat Pain Enoxaparin Sodium (Lovenox) 30 mg SC DAILY [facility] PRN Reason: Protocol Last Admin: 10/03/17 09:41 Dose: 30 mg Famotidine (Pepcid) 20 mg PO BID [facility] Last Admin: 10/03/17 09:41 Dose: 20 mg Folic Acid (Folic Acid) 1 mg PO DAILY [facility] Last Admin: 10/03/17 09:41 Dose: 1 mg Folic Acid 1 mg/ Thiamine HCl 100 mg/ Multivitamins/Vitamin C 10 ml/ Potassium Chloride 40 meq/ Dextrose 1,031.2 mls @ 100 mls/hr IV .[id number] [facility] Stop: 10/03/17 21:00 Last Admin: 10/03/17 07:39 Dose: 100 mls/hr Sodium Chloride (Sodium Chloride 0.9%) 1,000 mls @ 100 mls/hr IV .Q10H [facility] Ibuprofen (Motrin Tab) 400 mg PO Q6H PRN PRN Reason: Pain, moderate (4-7) Last Admin: 10/03/17 16:05 Dose: 400 mg Lorazepam (Ativan) 2 mg IVP Q3H PRN; Protocol PRN Reason: Anxiety Last Admin: 10/03/17 14:00 Dose: 2 mg Lorazepam (Ativan) 1 mg PO Q8H [facility] PRN Reason: Protocol Multivitamins (Thera Tab) 1 tab PO 0800 [facility] Last Admin: 10/03/17 09:41 Dose: 1 tab Nicotine (Nicoderm Cq) 1 patch TD DAILY [facility] Last Admin: 10/02/17 09:58 Dose: 1 patch Ondansetron HCl (Zofran Inj) 4 mg IVP Q6 PRN PRN Reason: Nausea/Vomiting Last Admin: 10/01/17 15:56 Dose: 4 mg Thiamine HCl (Vitamin B1 Tab) 50 mg PO DAILY [facility] Last Admin: 10/03/17 09:41 Dose: 50 mg - Labs Labs: 10/03/17 05:30 10/03/17 05:30 PT 11.5 SECONDS (9.4-12.5) 10/01/17 11:40 INR 1.00 (0.93-1.08) 10/01/17 11:40 APTT 28.9 Seconds (25.1-36.5) 10/01/17 11:40 Attending/Attestation - Attestation I have personally seen and examined this patient.: Yes I have fully participated in the care of the patient.: Yes I have reviewed all pertinent clinical information, including history, physical exam and plan: Yes Notes (Text): 10/03/17 16:17 Attending note; Patient seen and examined with resident. Patient is currently agitated with severe alcohol withdrawal symptoms. IV Ativan given. ICU evaluation requested for precedex drip. Patient is a 37-year-old male admitted after having a witnessed seizure at work. Patient with a history of long-standing alcohol abuse. Currently with acute delirium on alcohol withdrawal symptoms. Case discussed with educational institution curator in detail. Transferred to ICU. Nothing by mouth. Continue IV fluids. Seizure/fall/aspiration precaution. Monitor closely. Upon discharge the patient will follow up with PMD in [place]. 10/03/17 16:19
[2017-10-02 09:18] LABS: CK-MB 0.9 ng/mL (0.0-3.6)
[2017-10-02] MEDS: Multivitamin Therapeutic Tab PO SCH (09:22)
[2017-10-02] MEDS: Folic Acid 1 MG, Thiamine 100 MG, Multivitamin (MVI) 10 ML, Potassium Chloride 40 MEQ i... IV SCH ×2 (11:11→21:21)
[2017-10-02] MEDS ORDERED: Potassium Chloride 20 mEq ER Tab PO ONE (11:45)
[2017-10-02] MEDS ORDERED: Dexmedetomidine 400mcg/100mL 400 MCG/100 ML BOTTLE IV PRN (13:08)
[2017-10-02] MEDS: Enoxaparin 30 mg Syringe SC SCH (14:50)
[2017-10-02 15:25] LABS: ARTERIAL BLOOD GAS HCO3 23.3 mmol/L (21-28); ARTERIAL BLOOD GAS HEMOGLOBIN 15.2 g/dL (11.7-17.4); ARTERIAL BLOOD GAS O2 SAT 99.9 % (95-98); ARTERIAL BLOOD GAS PCO2 32 mm/Hg (35-45); ARTERIAL BLOOD GAS PH 7.47 (7.35-7.45); ARTERIAL BLOOD GAS TCO2 24.3 mmol.L (22-28)
--- NOTE | 2017-10-02 23:00 | CON ---
DATE: 10/02/2017 HISTORY OF PRESENT ILLNESS: The patient is a 37-year-old gentleman without significant past medical history except for history of alcohol dependence and abuse who according to the family at bedside has been drinking almost on daily basis heavily. He decided to stop drinking on Saturday. He went to work on Saturday where he had seizures and some altered mental status. Shortly afterwards, he was admitted to [facility] where he was diagnosed with delirium tremens and related to that new-onset seizures. The patient was admitted to telemetry floor, was given benzodiazepines on as-needed basis; however, he required incremental doses of benzodiazepines and still his symptoms were not very well controlled. He, however, did not have clinical seizures since admission to the hospital. He still remained jittery, tremulous, and agitated though. No fever, no chills, no sweats, no nausea, no vomiting, no diarrhea, no constipation. ICU was called for consult and consideration of escalation of therapy for alcohol withdrawal (? Precedex drip). PAST MEDICAL HISTORY: None. MEDICATIONS: At home, none. Medications in the hospital, Tylenol p.r.n., Lovenox 30 mg subcu daily, Pepcid, folic acid, banana bag, Ativan p.r.n., nicotine patch, Zofran p.r.n., thiamine. FAMILY HISTORY: Noncontributory. SOCIAL HISTORY: The patient is a heavy alcohol drinker and tobacco smoker. No illicit drug abuse. ALLERGIES: NKDA. REVIEW OF SYSTEMS: Review of 12-organ system other than mentioned in the history of present illness is negative. PHYSICAL EXAMINATION: VITAL SIGNS: Heart rate 114, blood pressure 168/114, temperature 99.6, respiratory rate 18, oxygen saturation 97% on room air. HEENT: Head and neck atraumatic. LUNGS: Clear to auscultation bilaterally. HEART: Regular rate and rhythm. S1 and S2 normal. ABDOMEN: Soft, nontender, nondistended. MUSCULOSKELETAL: No C/C/E. NEUROLOGIC: The patient moves all extremities spontaneously. SKIN: Moist. PSYCHIATRIC: The patient is agitated, tremulous, jittery; however, alert, awake, and oriented x3. He did receive 7 mg of Ativan prior to ICU evaluation at bedside. LABORATORY DATA: WBC 6.7, hemoglobin 15.2, platelet count 104, sodium 136, potassium 3.2 (supplemented), chloride 96, carbon dioxide 25, BUN 4, creatinine 0.8, down from 1.1, magnesium 2.1, CPK 611, troponin less than 0.01, lipase 576, amylase 107, AST 226, down from 315, ALT 123, down from 143, total bilirubin 1.6, slightly up from 1.1, INR 1, PTT 28.9, albumin 4.6. U-tox screen showed alcohol 88, salicylates and acetaminophen within normal limits (negative). The rest of U-tox screen is negative. IMAGING: CAT scan of the head, no active intracranial pathology. Chest x-ray, no active pulmonary disease. ASSESSMENT AND PLAN: This is a 37-year-old gentleman who presented to [facility] with delirium tremens, status post seizure due to alcohol withdrawal. His symptoms escalated despite incremental doses of benzodiazepine and Intensive Care Unit was called for further management and monitoring. The patient will be going to Intensive Care Unit. We will start the patient on Precedex drip, continue with benzodiazepines as needed. The patient will be put in dark room with minimal irritation and distraction. Hopefully, we will be able to optimize his circadian and sleep pattern, and continue with frequent reorientation. We will continue to maintain euvolemia, euglycemia, normothermia, and oxygen saturation more than 90%. We will continue with deep vein thrombosis and gastrointestinal prophylaxis. ccm time 40 min Morales Mabry MD [facility]
[2017-10-03 06:16] LABS: BASO # 0.05 K/mm3 (0.0-2.0); EOS # 0.5 (0.0-0.7); GRAN # 2.47 (1.4-6.5); GRAN % 50.7 % (50.0-68.0); HEMOGLOBIN 15.3 g/dL (14.0-18.0); LYMPH # 1.3 (1.2-3.4); LYMPH % 26.6 % (22.0-35.0); MEAN CELL VOLUME 89.5 fl (80.0-105.0); MEAN CORPUSCULAR HEMOGLOBIN 31.4 pg (25.0-35.0); MEAN PLATELET VOLUME 9.7 fl (7.0-11.0); MONO # 0.6 (0.1-0.6); MONO % 11.7 % (1.0-6.0); RBC 4.88 10^6/uL (3.5-6.1); RED CELL DISTRIBUTION WIDTH 14.4 % (11.5-14.5); WHITE BLOOD COUNT 4.9 10^3/ul (4.5-11.0)
[2017-10-03 07:21] LABS: ALB/GLOB RATIO 1.4 (1.1-1.8); ALBUMIN 4.2 g/dL (3.0-4.8); ALT/SGPT 108 U/L (7-56); AST/SGOT 162 U/L (17-59); BLOOD UREA NITROGEN 6 mg/dL (7-21); CALCIUM 8.7 mg/dL (8.4-10.5); GFR AFRICAN-AMERICAN > 60; GFR NON-AFRICAN AMERICAN > 60
[2017-10-03 07:35] LABS: CK-MB 0.3 ng/mL (0.0-3.6)
[2017-10-03] MEDS: Folic Acid 1 MG, Thiamine 100 MG, Multivitamin (MVI) 10 ML, Potassium Chloride 40 MEQ i... IV SCH (07:39)
--- NOTE | 2017-10-03 08:29 | CP.PCM.PN ---
Subjective - Date & Time of Evaluation Date of Evaluation: 10/03/17 Time of Evaluation: 08:15 - Subjective Subjective: PGY2 Neuro Progress note for Dr. Jordan Patient seen and examined at bedside. Off of precedex gtt. Patient continues to be tremulous but is ao x 3 this AM and is able to recount events leading to his admission. He reported he felt sluggish and was having some diarrhea but denied acute complaints of headache, dizziness, chest pain, palpitations, SOB, cough, abd pain, nausea, vomiting, bladder complaints, pain/swelling in his legs b/l. Patient was counseled thoroughly on the importance of alcohol cessation and the consequences of heavily drinking and stopping abruptly. He acknowledged this and reported he would be interested in going to meetings etc. Objective - Vital Signs/Intake and Output Vital Signs (last 24 hours): Temp Pulse Resp BP Pulse Ox 97.6 F 77 18 127/78 94 L 10/02/17 15:29 10/03/17 07:40 10/03/17 07:40 10/03/17 07:30 10/03/17 07:40 Intake and Output: 10/03/17 10/03/17 06:59 18:59 Intake Total 1237 85 Output Total 600 Balance 637 85 - Medications Medications: Current Medications Acetaminophen (Tylenol 325mg Tab) 650 mg PO Q6 PRN PRN Reason: Pain, moderate (4-7) Enoxaparin Sodium (Lovenox) 30 mg SC DAILY [facility] PRN Reason: Protocol Last Admin: 10/02/17 14:50 Dose: 30 mg Famotidine (Pepcid) 20 mg PO BID [facility] Last Admin: 10/02/17 18:05 Dose: Not Given Folic Acid (Folic Acid) 1 mg PO DAILY [facility] Last Admin: 10/02/17 09:32 Dose: Not Given Folic Acid 1 mg/ Thiamine HCl 100 mg/ Multivitamins/Vitamin C 10 ml/ Potassium Chloride 40 meq/ Dextrose 1,031.2 mls @ 100 mls/hr IV .[id number] [facility] Last Admin: 10/03/17 07:39 Dose: 100 mls/hr Dexmedetomidine HCl (Precedex 400mcg/100ml) 400 mcg in 100 mls @ 3.132 mls/hr IV .Q24H PRN; Protocol; 0.2 MCG/KG/HR PRN Reason: Symptoms of alcohol withdrawl Last Titration: 10/03/17 07:39 Dose: 0 mcg/kg/hr, 0 mls/hr Lorazepam (Ativan) 2 mg IVP Q3H PRN; Protocol PRN Reason: Anxiety Last Admin: 10/02/17 12:40 Dose: 2 mg Multivitamins (Thera Tab) 1 tab PO 0800 [facility] Last Admin: 10/02/17 09:22 Dose: Not Given Nicotine (Nicoderm Cq) 1 patch TD DAILY [facility] Last Admin: 10/02/17 09:58 Dose: 1 patch Ondansetron HCl (Zofran Inj) 4 mg IVP Q6 PRN PRN Reason: Nausea/Vomiting Last Admin: 10/01/17 15:56 Dose: 4 mg Thiamine HCl (Vitamin B1 Tab) 50 mg PO DAILY [facility] Last Admin: 10/02/17 09:22 Dose: Not Given - Labs Labs: 10/03/17 05:30 10/03/17 05:30 PT 11.5 SECONDS (9.4-12.5) 10/01/17 11:40 INR 1.00 (0.93-1.08) 10/01/17 11:40 APTT 28.9 Seconds (25.1-36.5) 10/01/17 11:40 - Constitutional Appears: Other (tremulous) - Head Exam Head Exam: NORMOCEPHALIC Additional comments: laceration noted posterior scalp- dressing in place - Eye Exam Eye Exam: EOMI, Normal appearance, PERRL. absent: Conjunctival injection, Scleral icterus Pupil Exam: NORMAL ACCOMODATION - ENT Exam ENT Exam: Mucous Membranes Dry - Respiratory Exam Respiratory Exam: NORMAL BREATHING PATTERN. absent: Accessory Muscle Use, Respiratory Distress - Cardiovascular Exam Cardiovascular Exam: +S1, +S2 - Extremities Exam Extremities Exam: Normal Capillary Refill, Normal Inspection. absent: Pedal Edema, Tenderness - Neurological Exam Neurological Exam: Alert, Awake, Oriented x3 Additional comments: tremors noted - Psychiatric Exam Psychiatric exam: Anxious - Skin Skin Exam: Dry, Intact, Normal Color, Warm Assessment and Plan - Assessment and Plan (Free Text) Assessment: 37yo male PMHx EtOH abuse admitted for witnessed seizure at his job site. Neuro consulted for seizures Plan: -likely alcohol withdrawal seizure -Head CT: no intracranial hemorrhage. Right posterior parietal scalp contusion. Otherwise unremarkable. -f/u EEG when patient is stable -Ativan for seizures -CIWA protocol -Aspiration and Seizure precautions -Fall Risk -Alcohol/drug cessation counseling -continue management as per primary team Discussed with Dr. Julian Lane PGY2
[2017-10-03] MEDS: Enoxaparin 30 mg Syringe SC SCH (09:41)
[2017-10-03] MEDS: Multivitamin Therapeutic Tab PO SCH (09:41)
--- NOTE | 2017-10-03 10:33 | PN ---
DATE: 10/03/2017 SUBJECTIVE: The patient is seen and examined at bedside. He is comfortable. He talks full sentences. He is not in respiratory or otherwise distress. Precedex was stopped. He had very comfortable and uneventful night. He is alert, awake and oriented x3. PHYSICAL EXAMINATION: VITAL SIGNS: Blood pressure 127/78, oxygen saturation 96%, heart rate 90, respiratory rate 20. ENT: Head and neck atraumatic. LUNGS: Clear to auscultation bilaterally. HEART: Regular rate and rhythm. S1 and S2 normal. ABDOMEN: Soft, nontender and nondistended. MUSCULOSKELETAL: No C/C/E. NEURO: The patient moves all extremities spontaneously. SKIN: Moist. PSYCH: The patient is alert, awake and oriented x3. LABORATORY DATA: WBC 4.9, hemoglobin 15.3, platelet count 93. Sodium 134, potassium 3.9, chloride 99, carbon dioxide 23, BUN 6, creatinine 0.8, glucose 114, magnesium 2.3. AST 162, down from 226; bilirubin 1.4, down from 1.6; ALT 108, down from 123. MEDICATIONS: Precedex is off, Tylenol p.r.n., "banana bag" 100 mL/hour, Lovenox 30 mg subcu daily, Pepcid, folic acid, Ativan p.r.n. multivitamins, nicotine patch, Zofran p.r.n., thiamine. ASSESSMENT AND PLAN: This is a 37-year-old gentleman who presented with alcohol withdrawal/delirium tremens. The patient was admitted to ICU for Precedex drip. At present time, Precedex weaned off and the patient is much more comfortable, not jittery. Alert, awake and oriented x3. We will continue with benzodiazepines p.r.n., optimization of his circadian and sleep patterns. Frequent reorientation if needed. Deep venous thrombosis, gastrointestinal prophylaxis. His relative thrombocytopenia probably relates to alcohol related suppression of bone marrow. Okay to downgrade to Med-Surg. ccm time 40 min Morales Mabry MD VAN
--- NOTE | 2017-10-03 13:26 | CP.PCM.PN ---
<Jaye Pearce - Last Filed: 10/03/17 13:23> Subjective - Date & Time of Evaluation Date of Evaluation: 10/03/17 Time of Evaluation: 10:00 - Subjective Subjective: IM progress note for Dr. Cunningham-Jaye Pearce, PGY-1 Pt S & E at bedside at 0740 Pt reports some diarrhea overnight. Now off precedex. Is asking to go home, explained the importance of being safe and seizure free prior to discharge. Reports hunger, thirst, tremors improving. Denies N & V, F & C, chest pain, SOB. Objective - Vital Signs/Intake and Output Vital Signs (last 24 hours): Temp Pulse Resp BP Pulse Ox 97.2 F L 88 13 103/48 L 96 10/03/17 10:26 10/03/17 10:10 10/03/17 10:10 10/03/17 10:00 10/03/17 10:00 Intake and Output: 10/03/17 10/03/17 06:59 18:59 Intake Total 1237 85 Output Total 600 Balance 637 85 - Medications Medications: Current Medications Acetaminophen (Tylenol 325mg Tab) 650 mg PO Q6 PRN PRN Reason: Pain, moderate (4-7) Enoxaparin Sodium (Lovenox) 30 mg SC DAILY [facility] PRN Reason: Protocol Last Admin: 10/03/17 09:41 Dose: 30 mg Famotidine (Pepcid) 20 mg PO BID [facility] Last Admin: 10/03/17 09:41 Dose: 20 mg Folic Acid (Folic Acid) 1 mg PO DAILY [facility] Last Admin: 10/03/17 09:41 Dose: 1 mg Folic Acid 1 mg/ Thiamine HCl 100 mg/ Multivitamins/Vitamin C 10 ml/ Potassium Chloride 40 meq/ Dextrose 1,031.2 mls @ 100 mls/hr IV .[id number] [facility] Stop: 10/03/17 14:00 Last Admin: 10/03/17 07:39 Dose: 100 mls/hr Sodium Chloride (Sodium Chloride 0.9%) 1,000 mls @ 100 mls/hr IV .Q10H [facility] Lorazepam (Ativan) 2 mg IVP Q3H PRN; Protocol PRN Reason: Anxiety Last Admin: 10/03/17 09:50 Dose: 2 mg Multivitamins (Thera Tab) 1 tab PO 0800 [facility] Last Admin: 10/03/17 09:41 Dose: 1 tab Nicotine (Nicoderm Cq) 1 patch TD DAILY [facility] Last Admin: 10/02/17 09:58 Dose: 1 patch Ondansetron HCl (Zofran Inj) 4 mg IVP Q6 PRN PRN Reason: Nausea/Vomiting Last Admin: 10/01/17 15:56 Dose: 4 mg Thiamine HCl (Vitamin B1 Tab) 50 mg PO DAILY [facility] Last Admin: 10/03/17 09:41 Dose: 50 mg - Labs Labs: 10/03/17 05:30 10/03/17 05:30 PT 11.5 SECONDS (9.4-12.5) 10/01/17 11:40 INR 1.00 (0.93-1.08) 10/01/17 11:40 APTT 28.9 Seconds (25.1-36.5) 10/01/17 11:40 - Constitutional Appears: Non-toxic, No Acute Distress - Head Exam Head Exam: ATRAUMATIC, NORMAL INSPECTION, NORMOCEPHALIC - Eye Exam Eye Exam: EOMI, Normal appearance - ENT Exam ENT Exam: Mucous Membranes Moist, Normal Exam - Neck Exam Neck Exam: Full ROM, Normal Inspection - Respiratory Exam Respiratory Exam: Clear to Ausculation Bilateral, NORMAL BREATHING PATTERN - Cardiovascular Exam Cardiovascular Exam: REGULAR RHYTHM, +S1, +S2 - GI/Abdominal Exam GI & Abdominal Exam: Soft, Normal Bowel Sounds. absent: Distended, Firm, Guarding, Rigid - Extremities Exam Extremities Exam: Full ROM, Normal Inspection Additional comments: Bruise on left upper extremity medial aspect - Neurological Exam Neurological Exam: Alert, Awake, CN II-XII Intact, Oriented x3 - Psychiatric Exam Psychiatric exam: Normal Affect, Normal Mood - Skin Skin Exam: Dry, Intact, Normal Color, Warm Additional comments: multiple tattoos over torso and upper extremities Assessment and Plan - Assessment and Plan (Free Text) Assessment: 37M with PMH of ETOH abuse presents to [facility] for seizure likely secondary to EtOH withdrawal Plan: S/p seizure in setting of ETOH abuse CK down trending Cont IVF FU EEG CIWA protocol Ativan Zofran Aspiration precautions Seizure precautions Fall risk protocol ETOH cessation education provided Neuro consulted- no intervention ETOH withdrawal Ativan Banana bag MV Folic acid Vitamin B1 Zofran as above L shoulder pain s/p seizure Tylenol PRN X-ray neg Monitor Transaminitis in setting of ETOH abuse/mild ETOH hepatitis Downtrending Monitor Diarrhea C diff neg Monitor Nicotine abuse Nicotine patch Monitor GI/DVT ppx SCD Pepcid Heparin Dispo: Transferred to [facility] Advanced diet/monitor for tolerance FU EEG PT evaluation tomorrow DW attending [place], PGY-1 <Jj Cunningham - Last Filed: 10/03/17 16:23> Objective - Vital Signs/Intake and Output Vital Signs (last 24 hours): Temp Pulse Resp BP Pulse Ox 99 F 95 H 16 131/90 96 10/03/17 14:00 10/03/17 14:00 10/03/17 14:00 10/03/17 14:00 10/03/17 14:00 Intake and Output: 10/03/17 10/03/17 06:59 18:59 Intake Total 1237 85 Output Total 600 Balance 637 85 - Medications Medications: Current Medications Al Hydrox/Mg Hydrox/Simethicone 30 ml/Diphenhydramine HCl 75 mg/Lidocaine 30 ml 0 ml PO Q2H PRN PRN Reason: Mouth/Throat Pain Enoxaparin Sodium (Lovenox) 30 mg SC DAILY [facility] PRN Reason: Protocol Last Admin: 10/03/17 09:41 Dose: 30 mg Famotidine (Pepcid) 20 mg PO BID [facility] Last Admin: 10/03/17 09:41 Dose: 20 mg Folic Acid (Folic Acid) 1 mg PO DAILY [facility] Last Admin: 10/03/17 09:41 Dose: 1 mg Folic Acid 1 mg/ Thiamine HCl 100 mg/ Multivitamins/Vitamin C 10 ml/ Potassium Chloride 40 meq/ Dextrose 1,031.2 mls @ 100 mls/hr IV .[id number] [facility] Stop: 10/03/17 21:00 Last Admin: 10/03/17 07:39 Dose: 100 mls/hr Sodium Chloride (Sodium Chloride 0.9%) 1,000 mls @ 100 mls/hr IV .Q10H [facility] Ibuprofen (Motrin Tab) 400 mg PO Q6H PRN PRN Reason: Pain, moderate (4-7) Last Admin: 10/03/17 16:05 Dose: 400 mg Lorazepam (Ativan) 2 mg IVP Q3H PRN; Protocol PRN Reason: Anxiety Last Admin: 10/03/17 14:00 Dose: 2 mg Lorazepam (Ativan) 1 mg PO Q8H [facility] PRN Reason: Protocol Multivitamins (Thera Tab) 1 tab PO 0800 [facility] Last Admin: 10/03/17 09:41 Dose: 1 tab Nicotine (Nicoderm Cq) 1 patch TD DAILY [facility] Last Admin: 10/02/17 09:58 Dose: 1 patch Ondansetron HCl (Zofran Inj) 4 mg IVP Q6 PRN PRN Reason: Nausea/Vomiting Last Admin: 10/01/17 15:56 Dose: 4 mg Thiamine HCl (Vitamin B1 Tab) 50 mg PO DAILY [facility] Last Admin: 10/03/17 09:41 Dose: 50 mg - Labs Labs: 10/03/17 05:30 10/03/17 05:30 PT 11.5 SECONDS (9.4-12.5) 10/01/17 11:40 INR 1.00 (0.93-1.08) 10/01/17 11:40 APTT 28.9 Seconds (25.1-36.5) 10/01/17 11:40 Attending/Attestation - Attestation I have personally seen and examined this patient.: Yes I have fully participated in the care of the patient.: Yes I have reviewed all pertinent clinical information, including history, physical exam and plan: Yes Notes (Text): 10/03/17 16:21 Attending note; Patient seen and examined with resident. Patient was transferred out of ICU today. Patient is more alert and awake. Agitation and tremor is improving. Started on liquid diet. Tolerating well. No diarrhea today. C. difficile is negative. Continue Ativan. Complete alcohol cessation is strongly advised . Active smoking ; smoking cessation is strongly advised .on NicoDerm patch . Patient was advised to follow-up with AA meetings and rehabilitation . social problems specialist Evaluation requested . Upon discharge the patient will follow up with PMD in [place].
[2017-10-03] MEDS: Aluminum Hydroxide/Magnesium 30 ML, DiphenhydrAMINE 75 MG, Lidocaine 2% Viscous 30 ML PO PRN (18:26)
[2017-10-04 07:16] LABS: BASO # 0.03 K/mm3 (0.0-2.0); BASO % 0.5 % (0.0-3.0); EOS # 0.5 (0.0-0.7); EOS % 7.5 % (1.5-5.0); GRAN # 2.87 (1.4-6.5); GRAN % 46.9 % (50.0-68.0); HEMOGLOBIN 16.8 g/dL (14.0-18.0); LYMPH # 1.7 (1.2-3.4); LYMPH % 28.3 % (22.0-35.0); MEAN CORPUSCULAR HEMOGLOBIN 31.6 pg (25.0-35.0); MEAN CORPUSCULAR HGB CONC 35.1 g/dl (31.0-37.0); MONO % 16.8 % (1.0-6.0); RBC 5.31 10^6/uL (3.5-6.1); RED CELL DISTRIBUTION WIDTH 14.4 % (11.5-14.5); WHITE BLOOD COUNT 6.1 10^3/ul (4.5-11.0)
[2017-10-04 08:03] LABS: ALB/GLOB RATIO 1.4 (1.1-1.8); ALBUMIN 5.1 g/dL (3.0-4.8); ALT/SGPT 111 U/L (7-56); AST/SGOT 156 U/L (17-59); BLOOD UREA NITROGEN 9 mg/dL (7-21); CALCIUM 9.9 mg/dL (8.4-10.5); GFR AFRICAN-AMERICAN > 60; GFR NON-AFRICAN AMERICAN > 60
[2017-10-04] MEDS: Multivitamin Therapeutic Tab PO SCH (08:28)
[2017-10-04 08:33] LABS: CK-MB 0.3 ng/mL (0.0-3.6)
--- NOTE | 2017-10-04 08:42 | CP.PCM.PN ---
Subjective - Date & Time of Evaluation Date of Evaluation: 10/04/17 Time of Evaluation: 09:00 - Subjective Subjective: PGY2 Neuro Progress note for Dr. Jordan Patient seen and examined standing up walking around in his room with 1:1 at bedside. Nursing reported patient was slightly agitated overnight. Patient denied acute complaints of headache, dizziness, chest pain, palpitations, SOB, cough, abd pain, nausea, vomiting, bowel/bladder complaints, pain/swelling in his legs bilaterally. Patient is eager to go home. Objective - Vital Signs/Intake and Output Vital Signs (last 24 hours): Temp Pulse Resp BP Pulse Ox 98.4 F 74 18 141/92 H 99 10/04/17 06:00 10/04/17 06:00 10/04/17 06:00 10/04/17 06:00 10/04/17 06:00 Intake and Output: 10/04/17 10/04/17 06:59 18:59 Intake Total 720 Output Total 600 Balance 120 - Medications Medications: Current Medications Al Hydrox/Mg Hydrox/Simethicone 30 ml/Diphenhydramine HCl 75 mg/Lidocaine 30 ml 0 ml PO Q2H PRN PRN Reason: Mouth/Throat Pain Last Admin: 10/03/17 18:26 Dose: 15 ml Enoxaparin Sodium (Lovenox) 30 mg SC DAILY [facility] PRN Reason: Protocol Last Admin: 10/03/17 09:41 Dose: 30 mg Famotidine (Pepcid) 20 mg PO BID [facility] Last Admin: 10/03/17 18:32 Dose: 20 mg Folic Acid (Folic Acid) 1 mg PO DAILY [facility] Last Admin: 10/03/17 09:41 Dose: 1 mg Sodium Chloride (Sodium Chloride 0.9%) 1,000 mls @ 100 mls/hr IV .Q10H [facility] Ibuprofen (Motrin Tab) 400 mg PO Q6H PRN PRN Reason: Pain, moderate (4-7) Last Admin: 10/03/17 16:05 Dose: 400 mg Lorazepam (Ativan) 2 mg IVP Q3H PRN; Protocol PRN Reason: Anxiety Last Admin: 10/04/17 07:24 Dose: 2 mg Lorazepam (Ativan) 1 mg PO Q8H [facility] PRN Reason: Protocol Last Admin: 10/04/17 01:58 Dose: 1 mg Lorazepam (Ativan) 2 mg IVP Q4 [facility] PRN Reason: Protocol Multivitamins (Thera Tab) 1 tab PO 0800 [facility] Last Admin: 10/04/17 08:28 Dose: 1 tab Nicotine (Nicoderm Cq) 1 patch TD DAILY [facility] Last Admin: 10/03/17 18:24 Dose: 1 patch Ondansetron HCl (Zofran Inj) 4 mg IVP Q6 PRN PRN Reason: Nausea/Vomiting Last Admin: 10/01/17 15:56 Dose: 4 mg Thiamine HCl (Vitamin B1 Tab) 50 mg PO DAILY [facility] Last Admin: 10/03/17 09:41 Dose: 50 mg Ziprasidone (Geodon Inj) 15 mg IM Q12 PRN; Protocol PRN Reason: Anxiety - Labs Labs: 10/04/17 07:00 10/04/17 07:00 PT 11.5 SECONDS (9.4-12.5) 10/01/17 11:40 INR 1.00 (0.93-1.08) 10/01/17 11:40 APTT 28.9 Seconds (25.1-36.5) 10/01/17 11:40 - Constitutional Appears: No Acute Distress, Other (tremulous) - Head Exam Head Exam: NORMOCEPHALIC Additional comments: laceration noted posterior scalp- dressing in place - Eye Exam Eye Exam: EOMI, Normal appearance, PERRL. absent: Conjunctival injection, Scleral icterus - ENT Exam ENT Exam: Mucous Membranes Dry - Neck Exam Neck Exam: Full ROM - Respiratory Exam Respiratory Exam: NORMAL BREATHING PATTERN. absent: Accessory Muscle Use, Respiratory Distress - Cardiovascular Exam Cardiovascular Exam: +S1, +S2 - Rectal Exam Rectal Exam: Deferred - Neurological Exam Neurological Exam: Alert, Awake, CN II-XII Intact, Normal Gait, Oriented x3 Neuro motor strength exam: Left Upper Extremity: 5, Right Upper Extremity: 5, Left Lower Extremity: 5, Right Lower Extremity: 5 - Psychiatric Exam Psychiatric exam: Anxious - Skin Skin Exam: Dry, Intact Assessment and Plan - Assessment and Plan (Free Text) Assessment: 37yo male PMHx EtOH abuse admitted for witnessed seizure at his job site. Neuro consulted for seizures Plan: -likely alcohol withdrawal seizure -Head CT: no intracranial hemorrhage. Right posterior parietal scalp contusion. Otherwise unremarkable. -Ativan for seizures -[facility] protocol -Aspiration and Seizure precautions -Fall Risk -Alcohol/drug cessation counseling -continue management as per primary team Neurology will sign off at this time. Please reconsult as needed. Discussed with Dr. Julian Lane PGY2
[2017-10-04] MEDS: Enoxaparin 30 mg Syringe SC SCH (09:55)
--- NOTE | 2017-10-04 16:00 | CP.PCM.PN ---
<Dieter Mcmullen - Last Filed: 10/04/17 15:50> Subjective - Date & Time of Evaluation Date of Evaluation: 10/04/17 Time of Evaluation: 07:05 - Subjective Subjective: PGY1 Medicine Note for Dr. Cunningham Patient seen and examined at bedside this morning. Patient was a code giles overnight because he was attempting to leave the hospital and was confused. Patient had multiple code greys called on him today as well because he thinks he needs to leave the hospital. He is confused. He is very unstable on his feet and keeps attempting to stand up. He has tremors. He is very polite and has not become violent but is attempting to push everyone away. ROS unattainable. Objective - Vital Signs/Intake and Output Vital Signs (last 24 hours): Temp Pulse Resp BP Pulse Ox 98.4 F 74 18 141/92 H 99 10/04/17 06:00 10/04/17 06:00 10/04/17 06:00 10/04/17 06:00 10/04/17 06:00 Intake and Output: 10/04/17 10/04/17 06:59 18:59 Intake Total 720 Output Total 600 Balance 120 - Medications Medications: Current Medications Al Hydrox/Mg Hydrox/Simethicone 30 ml/Diphenhydramine HCl 75 mg/Lidocaine 30 ml 0 ml PO Q2H PRN PRN Reason: Mouth/Throat Pain Last Admin: 10/03/17 18:26 Dose: 15 ml Enoxaparin Sodium (Lovenox) 30 mg SC DAILY [facility]REZ PRN Reason: Protocol Last Admin: 10/04/17 09:55 Dose: 30 mg Famotidine (Pepcid) 20 mg PO BID ANDREZ Last Admin: 10/04/17 09:55 Dose: 20 mg Folic Acid (Folic Acid) 1 mg PO DAILY [facility]REZ Last Admin: 10/04/17 09:55 Dose: 1 mg Sodium Chloride (Sodium Chloride 0.9%) 1,000 mls @ 100 mls/hr IV .Q10H ANDREZ Ibuprofen (Motrin Tab) 400 mg PO Q6H PRN PRN Reason: Pain, moderate (4-7) Last Admin: 10/03/17 16:05 Dose: 400 mg Lorazepam (Ativan) 2 mg IVP Q3H PRN; Protocol PRN Reason: Anxiety Last Admin: 10/04/17 07:24 Dose: 2 mg Lorazepam (Ativan) 1 mg PO Q8H [facility]REZ PRN Reason: Protocol Last Admin: 10/04/17 09:55 Dose: 1 mg Lorazepam (Ativan) 2 mg IVP Q4 ANDREZ PRN Reason: Protocol Last Admin: 10/04/17 13:29 Dose: 2 mg Multivitamins (Thera Tab) 1 tab PO 0800 [facility] Last Admin: 10/04/17 08:28 Dose: 1 tab Nicotine (Nicoderm Cq) 1 patch TD DAILY [facility] Last Admin: 10/04/17 09:53 Dose: 1 patch Ondansetron HCl (Zofran Inj) 4 mg IVP Q6 PRN PRN Reason: Nausea/Vomiting Last Admin: 10/01/17 15:56 Dose: 4 mg Thiamine HCl (Vitamin B1 Tab) 50 mg PO DAILY [facility] Last Admin: 10/04/17 09:56 Dose: 50 mg Ziprasidone (Geodon Inj) 15 mg IM Q12 PRN; Protocol PRN Reason: Anxiety Last Admin: 10/04/17 12:15 Dose: 15 mg - Labs Labs: 10/04/17 07:00 10/04/17 07:00 PT 11.5 SECONDS (9.4-12.5) 10/01/17 11:40 INR 1.00 (0.93-1.08) 10/01/17 11:40 APTT 28.9 Seconds (25.1-36.5) 10/01/17 11:40 - Constitutional Appears: Confused - Head Exam Additional comments: bandaid on back of head - Eye Exam Eye Exam: Conjunctival injection (right side - mucopurulent drainage) - Respiratory Exam Respiratory Exam: Clear to Ausculation Bilateral, NORMAL BREATHING PATTERN. absent: Accessory Muscle Use, Rales, Rhonchi, Wheezes, Respiratory Distress - Cardiovascular Exam Cardiovascular Exam: REGULAR RHYTHM, +S1, +S2 - GI/Abdominal Exam GI & Abdominal Exam: Soft, Normal Bowel Sounds. absent: Distended, Firm, Guarding, Rigid, Tenderness - Extremities Exam Extremities Exam: absent: Calf Tenderness, Pedal Edema - Neurological Exam Neurological Exam: Alert, Altered, Awake. absent: Oriented x3 - Psychiatric Exam Psychiatric exam: Agitated Additional comments: confused. - Skin Skin Exam: Dry, Warm Assessment and Plan - Assessment and Plan (Free Text) Assessment: 37M with PMH of ETOH abuse presents to [facility] [place] likely secondary to EtOH withdrawal Plan: S/p seizure in setting of ETOH abuse CK down trending NS @100mL FU EEG - pt has been unable to tolerate procedure CIWA protocol Ativan 2mg IVP q4h Ativan 1mg PO q8h Ativan 2mg IVP q3h prn Zofran Aspiration precautions Seizure precautions Fall risk protocol ETOH cessation education provided Neuro consulted- no intervention ETOH withdrawal Ativan 2mg IVP q4h Ativan 1mg PO q8h Ativan 2mg IVP q3h prn Geodon 15mg IM q12h prn Multivitamin Folic acid Vitamin B1 Zofran as above Bacterial Conjunctivitis - right eye Started Tobramycin 0.3% 2 drops in right eye daily q4h continue to monitor L shoulder pain s/p seizure Tylenol PRN X-ray neg Monitor Transaminitis in setting of ETOH abuse/mild ETOH hepatitis Downtrending Monitor Diarrhea C diff neg Monitor - most likely 2/2 hx of alcohol abuse Nicotine abuse Nicotine patch Monitor GI/DVT ppx SCD Pepcid Lovenox Advanced diet/monitor for tolerance PT evaluation tomorrow Case discussed with Dr. Marisa Garcias Kemi PGY1 <Jj Cunningham - Last Filed: 10/04/17 16:47> Objective - Vital Signs/Intake and Output Vital Signs (last 24 hours): Temp Pulse Resp BP Pulse Ox 98.4 F 74 18 141/92 H 99 10/04/17 06:00 10/04/17 06:00 10/04/17 06:00 10/04/17 06:00 10/04/17 06:00 Intake and Output: 10/04/17 10/04/17 06:59 18:59 Intake Total 720 Output Total 600 Balance 120 - Medications Medications: Current Medications Al Hydrox/Mg Hydrox/Simethicone 30 ml/Diphenhydramine HCl 75 mg/Lidocaine 30 ml 0 ml PO Q2H PRN PRN Reason: Mouth/Throat Pain Last Admin: 10/03/17 18:26 Dose: 15 ml Enoxaparin Sodium (Lovenox) 30 mg SC DAILY ANDREZ PRN Reason: Protocol Last Admin: 10/04/17 09:55 Dose: 30 mg Famotidine (Pepcid) 20 mg PO BID [facility] Last Admin: 10/04/17 09:55 Dose: 20 mg Folic Acid (Folic Acid) 1 mg PO DAILY [facility] Last Admin: 10/04/17 09:55 Dose: 1 mg Ibuprofen (Motrin Tab) 400 mg PO Q6H PRN PRN Reason: Pain, moderate (4-7) Last Admin: 10/03/17 16:05 Dose: 400 mg Lorazepam (Ativan) 2 mg IVP Q3H PRN; Protocol PRN Reason: Anxiety Last Admin: 10/04/17 16:24 Dose: 2 mg Lorazepam (Ativan) 1 mg PO Q8H ANDREZ PRN Reason: Protocol Last Admin: 10/04/17 09:55 Dose: 1 mg Lorazepam (Ativan) 2 mg IVP Q4 ANDREZ PRN Reason: Protocol Last Admin: 10/04/17 13:29 Dose: 2 mg Multivitamins (Thera Tab) 1 tab PO 0800 [facility] Last Admin: 10/04/17 08:28 Dose: 1 tab Nicotine (Nicoderm Cq) 1 patch TD DAILY [facility] Last Admin: 10/04/17 09:53 Dose: 1 patch Ondansetron HCl (Zofran Inj) 4 mg IVP Q6 PRN PRN Reason: Nausea/Vomiting Last Admin: 10/01/17 15:56 Dose: 4 mg Thiamine HCl (Vitamin B1 Tab) 50 mg PO DAILY [facility] Last Admin: 10/04/17 09:56 Dose: 50 mg Tobramycin Sulfate (Tobrex 0.3% Ophth Soln) 2 drop OD Q4H [facility] Last Admin: 10/04/17 16:28 Dose: 2 drop Ziprasidone (Geodon Inj) 15 mg IM Q12 PRN; Protocol PRN Reason: Anxiety Last Admin: 10/04/17 12:15 Dose: 15 mg - Labs Labs: 10/04/17 07:00 10/04/17 07:00 PT 11.5 SECONDS (9.4-12.5) 10/01/17 11:40 INR 1.00 (0.93-1.08) 10/01/17 11:40 APTT 28.9 Seconds (25.1-36.5) 10/01/17 11:40 Attending/Attestation - Attestation I have personally seen and examined this patient.: Yes I have fully participated in the care of the patient.: Yes I have reviewed all pertinent clinical information, including history, physical exam and plan: Yes Notes (Text): 10/04/17 16:45 Attending note; Patient seen and examined with resident. patient is alert and awake. But confused at times. Agitated. Trying to leave the hospital. Patient with unsteady gait. Continue IV ativan. Geodon ordered. based on one-to-one observation. continue to monitor closely. Active smoking ; smoking cessation is strongly advised .on NicoDerm patch . LFTs improving. CPK improved. Upon discharge the patient will follow up with PMD in [place].
[2017-10-04] MEDS ORDERED: Tobramycin 0.3% OPHT SOLN OU SCH (16:15)
[2017-10-04] MEDS ORDERED: Tobramycin 0.3% OPHT SOLN OD SCH (16:15)
[2017-10-04] MEDS: Tobramycin 0.3% OPHT SOLN OD SCH (16:28)
[2017-10-04] MEDS: Folic Acid 1 MG, Thiamine 100 MG, Multivitamin (MVI) 10 ML, Potassium Chloride 40 MEQ i... IV SCH (20:55)
[2017-10-05] MEDS: Sodium Chloride 0.9% 1,000 ML IV SCH ×2 (06:55→06:59)
[2017-10-05] MEDS: Tobramycin 0.3% OPHT SOLN OD SCH ×4 (09:46→21:18)
[2017-10-05] MEDS: Multivitamin Therapeutic Tab PO SCH (09:50)
[2017-10-05] MEDS: Enoxaparin 30 mg Syringe SC SCH (09:51)
[2017-10-05 10:13] LABS: BASO # 0.07 K/mm3 (0.0-2.0); BASO % 1.1 % (0.0-3.0); EOS # 0.5 (0.0-0.7); EOS % 7.8 % (1.5-5.0); GRAN # 3.05 (1.4-6.5); GRAN % 47.5 % (50.0-68.0); HEMOGLOBIN 16.2 g/dL (14.0-18.0); LYMPH # 1.8 (1.2-3.4); LYMPH % 27.5 % (22.0-35.0); MEAN CELL VOLUME 90.4 fl (80.0-105.0); MEAN CORPUSCULAR HEMOGLOBIN 31.6 pg (25.0-35.0); MEAN PLATELET VOLUME 9.8 fl (7.0-11.0); MONO % 16.1 % (1.0-6.0); RBC 5.12 10^6/uL (3.5-6.1); RED CELL DISTRIBUTION WIDTH 14.6 % (11.5-14.5); WHITE BLOOD COUNT 6.4 10^3/ul (4.5-11.0)
[2017-10-05 10:30] LABS: ALB/GLOB RATIO 1.4 (1.1-1.8); ALBUMIN 4.6 g/dL (3.0-4.8); BLOOD UREA NITROGEN 7 mg/dL (7-21); GFR AFRICAN-AMERICAN > 60; GFR NON-AFRICAN AMERICAN > 60
[2017-10-05 10:31] LABS: ALT/SGPT 135 U/L (7-56); AST/SGOT 143 U/L (17-59)
[2017-10-05] MEDS: Aluminum Hydroxide/Magnesium 30 ML, DiphenhydrAMINE 75 MG, Lidocaine 2% Viscous 30 ML PO PRN ×2 (12:05→21:18)
--- NOTE | 2017-10-05 15:25 | CP.PCM.PN ---
<Dieter Mcmullen - Last Filed: 10/05/17 16:01> Subjective - Date & Time of Evaluation Date of Evaluation: 10/05/17 Time of Evaluation: 13:30 - Subjective Subjective: PGY1 Medicine Note for Dr. Cunningham Patient seen and examined at bedside this afternoon. Patient was attempted to be evaluated this morning but he was still sedated due to receiving medication overnight. Patient was confused and attempted to leave and required medications to be helped back to his bed. This afternoon patient was very calm sitting in his bed with family at bedside. He did not remember any of our previous conversations and was requesting to leave the hospital because he would like to spend time with his children. He was informed that he was still shaking and that we need to continue to monitor him because the medications are helping with his withdrawal symptoms. He is not going to be discharged today and will be re-evaluated in the morning. Patient has no complaints at this time stating that he is fine. Objective - Vital Signs/Intake and Output Vital Signs (last 24 hours): Temp Pulse Resp BP Pulse Ox 98.2 F 124 H 18 136/98 H 96 10/04/17 22:00 10/04/17 22:00 10/04/17 22:00 10/04/17 22:00 10/04/17 22:00 Intake and Output: 10/05/17 10/05/17 06:59 18:59 Intake Total 780 Balance 780 - Medications Medications: Current Medications Al Hydrox/Mg Hydrox/Simethicone 30 ml/Diphenhydramine HCl 75 mg/Lidocaine 30 ml 0 ml PO Q2H PRN PRN Reason: Mouth/Throat Pain Last Admin: 10/05/17 12:05 Dose: 15 ml Enoxaparin Sodium (Lovenox) 30 mg SC DAILY [facility] PRN Reason: Protocol Last Admin: 10/05/17 09:51 Dose: 30 mg Famotidine (Pepcid) 20 mg PO BID [facility] Last Admin: 10/05/17 09:50 Dose: 20 mg Folic Acid (Folic Acid) 1 mg PO DAILY [facility] Last Admin: 10/05/17 09:50 Dose: 1 mg Ibuprofen (Motrin Tab) 400 mg PO Q6H PRN PRN Reason: Pain, moderate (4-7) Last Admin: 10/03/17 16:05 Dose: 400 mg Lorazepam (Ativan) 2 mg IVP Q3H PRN; Protocol PRN Reason: Anxiety Last Admin: 10/04/17 16:24 Dose: 2 mg Lorazepam (Ativan) 1 mg PO Q8H [facility] PRN Reason: Protocol Last Admin: 10/05/17 09:51 Dose: 1 mg Lorazepam (Ativan) 2 mg IVP Q6H [facility] PRN Reason: Protocol Multivitamins (Thera Tab) 1 tab PO 0800 [facility] Last Admin: 10/05/17 09:50 Dose: 1 tab Nicotine (Nicoderm Cq) 1 patch TD DAILY [facility] Last Admin: 10/05/17 09:50 Dose: 1 patch Ondansetron HCl (Zofran Inj) 4 mg IVP Q6 PRN PRN Reason: Nausea/Vomiting Last Admin: 10/01/17 15:56 Dose: 4 mg Thiamine HCl (Vitamin B1 Tab) 50 mg PO DAILY [facility] Last Admin: 10/05/17 09:50 Dose: 50 mg Tobramycin Sulfate (Tobrex 0.3% Ophth Soln) 2 drop OD Q4H [facility] Last Admin: 10/05/17 11:59 Dose: 2 drop Ziprasidone (Geodon Inj) 15 mg IM Q12 PRN; Protocol PRN Reason: Anxiety Last Admin: 10/05/17 05:11 Dose: 15 mg - Labs Labs: 10/05/17 10:00 10/05/17 10:00 PT 11.5 SECONDS (9.4-12.5) 10/01/17 11:40 INR 1.00 (0.93-1.08) 10/01/17 11:40 APTT 28.9 Seconds (25.1-36.5) 10/01/17 11:40 - Constitutional Appears: Non-toxic, No Acute Distress, Other (calm and sediated) - Head Exam Head Exam: absent: ATRAUMATIC (bandaid on back of head) - Eye Exam Eye Exam: Conjunctival injection (right side). absent: Normal appearance ( patient eye only half open due to medications) - ENT Exam ENT Exam: Mucous Membranes Moist - Respiratory Exam Respiratory Exam: NORMAL BREATHING PATTERN. absent: Accessory Muscle Use, Respiratory Distress - Cardiovascular Exam Cardiovascular Exam: REGULAR RHYTHM, +S1, +S2 - GI/Abdominal Exam GI & Abdominal Exam: Soft. absent: Distended, Firm, Guarding, Rigid, Tenderness - Extremities Exam Extremities Exam: absent: Pedal Edema - Neurological Exam Neurological Exam: Alert, Awake Additional comments: tremor of hands b/l - Psychiatric Exam Additional comments: patient is very lethargic due to sedation effect of medications. he is still asking if he can leave. - Skin Skin Exam: Dry, Warm Assessment and Plan - Assessment and Plan (Free Text) Assessment: 37M with PMH of ETOH abuse presents to [facility] [place] for seizure likely secondary to EtOH withdrawal Plan: S/p seizure in setting of ETOH abuse CK down trending NS @100mL FU EEG - official report pending CIWA protocol Ativan 2mg IVP q4h Ativan 1mg PO q8h Ativan 2mg IVP q3h prn Zofran Aspiration precautions Seizure precautions Fall risk protocol ETOH cessation education provided Neuro consulted- no intervention ETOH withdrawal Ativan 2mg IVP q4h [place] - decreased to 2mg IVP q6h [place] Ativan 1mg PO q8h Ativan 2mg IVP q3h prn Geodon 15mg IM q12h prn Multivitamin Folic acid Vitamin B1 Zofran Discussion was had with patient's , Callie Wright, and her mother about the patient getting confused, attempting to leave the hospital and requiring medications again overnight. She responding with stating that she is ok with him staying in the hospital as long as he needs to in order to be safe to leave and no longer have symptoms of withdrawal. She also requested information about detox programs. Patient's also states that she would not like the doctor's to speak about the patient's care unless the patient is awake, alert and states he would like us to. Otherwise, she does not want any medical information shared with them unless she is present. She reports that when the hospital calls , people will pretend to be her so whoever is calling should ask for a code word. The code word is "One". She does not go by Rufino Rita, she goes by Rufino Kyle. Bacterial Conjunctivitis - right eye Tobramycin 0.3% 2 drops in right eye daily q4h improving - no mucopurulent drainage noted today. continue to monitor L shoulder pain s/p seizure Tylenol PRN X-ray neg Monitor Transaminitis in setting of ETOH abuse/mild ETOH hepatitis Still elevated Monitor Diarrhea C diff neg Monitor - most likely 2/2 hx of alcohol abuse Nicotine abuse Nicotine patch Monitor GI/DVT ppx SCD Pepcid Lovenox Advanced diet/monitor for tolerance PT evaluation tomorrow Case discussed with Dr. Marisa Garcias Kemi PGY1 <Jj Cunningham - Last Filed: 10/05/17 16:59> Objective - Vital Signs/Intake and Output Vital Signs (last 24 hours): Temp Pulse Resp BP Pulse Ox 99 F 102 H 16 106/52 L 98 10/05/17 14:00 10/05/17 14:00 10/05/17 14:00 10/05/17 14:00 10/05/17 14:00 Intake and Output: 10/05/17 10/05/17 06:59 18:59 Intake Total 780 Balance 780 - Medications Medications: Current Medications Al Hydrox/Mg Hydrox/Simethicone 30 ml/Diphenhydramine HCl 75 mg/Lidocaine 30 ml 0 ml PO Q2H PRN PRN Reason: Mouth/Throat Pain Last Admin: 10/05/17 12:05 Dose: 15 ml Enoxaparin Sodium (Lovenox) 30 mg SC DAILY [facility] PRN Reason: Protocol Last Admin: 10/05/17 09:51 Dose: 30 mg Famotidine (Pepcid) 20 mg PO BID [facility] Last Admin: 10/05/17 16:15 Dose: 20 mg Folic Acid (Folic Acid) 1 mg PO DAILY [facility] Last Admin: 10/05/17 09:50 Dose: 1 mg Ibuprofen (Motrin Tab) 400 mg PO Q6H PRN PRN Reason: Pain, moderate (4-7) Last Admin: 10/03/17 16:05 Dose: 400 mg Lorazepam (Ativan) 2 mg IVP Q3H PRN; Protocol PRN Reason: Anxiety Last Admin: 10/04/17 16:24 Dose: 2 mg Lorazepam (Ativan) 1 mg PO Q8H [facility] PRN Reason: Protocol Last Admin: 10/05/17 09:51 Dose: 1 mg Lorazepam (Ativan) 2 mg IVP Q6H [facility] PRN Reason: Protocol Last Admin: 10/05/17 16:14 Dose: 2 mg Multivitamins (Thera Tab) 1 tab PO 0800 [facility] Last Admin: 10/05/17 09:50 Dose: 1 tab Nicotine (Nicoderm Cq) 1 patch TD DAILY [facility] Last Admin: 10/05/17 09:50 Dose: 1 patch Ondansetron HCl (Zofran Inj) 4 mg IVP Q6 PRN PRN Reason: Nausea/Vomiting Last Admin: 10/01/17 15:56 Dose: 4 mg Thiamine HCl (Vitamin B1 Tab) 50 mg PO DAILY [facility] Last Admin: 10/05/17 09:50 Dose: 50 mg Tobramycin Sulfate (Tobrex 0.3% Ophth Soln) 2 drop OD Q4H [facility] Last Admin: 10/05/17 11:59 Dose: 2 drop Ziprasidone (Geodon Inj) 15 mg IM Q12 PRN; Protocol PRN Reason: Anxiety Last Admin: 10/05/17 05:11 Dose: 15 mg - Labs Labs: 10/05/17 10:00 10/05/17 10:00 PT 11.5 SECONDS (9.4-12.5) 10/01/17 11:40 INR 1.00 (0.93-1.08) 10/01/17 11:40 APTT 28.9 Seconds (25.1-36.5) 10/01/17 11:40 Attending/Attestation - Attestation I have personally seen and examined this patient.: Yes I have fully participated in the care of the patient.: Yes I have reviewed all pertinent clinical information, including history, physical exam and plan: Yes Notes (Text): 10/05/17 16:58 Attending note; Patient seen and examined with resident. patient is alert and awake. But confused at times. less agitation today. Continue IV ativan. on one-to-one observation. continue to monitor closely. Active smoking ; smoking cessation is strongly advised .on NicoDerm patch . LFTs improving. CPK improved. case discussed with patient's in detail. Upon discharge the patient will follow up with PMD in [place]. 10/05/17 16:59
[2017-10-06] MEDS: Tobramycin 0.3% OPHT SOLN OD SCH ×3 (00:07→08:19)
[2017-10-06] MEDS: Aluminum Hydroxide/Magnesium 30 ML, DiphenhydrAMINE 75 MG, Lidocaine 2% Viscous 30 ML PO PRN ×2 (02:22→12:27)
[2017-10-06 07:16] LABS: BASO # 0.06 K/mm3 (0.0-2.0); BASO % 0.8 % (0.0-3.0); EOS # 0.6 (0.0-0.7); EOS % 7.9 % (1.5-5.0); GRAN # 3.39 (1.4-6.5); GRAN % 45.4 % (50.0-68.0); HEMOGLOBIN 15.1 g/dL (14.0-18.0); LYMPH # 2.3 (1.2-3.4); LYMPH % 30.2 % (22.0-35.0); MEAN CELL VOLUME 89.6 fl (80.0-105.0); MEAN CORPUSCULAR HEMOGLOBIN 31.5 pg (25.0-35.0); MEAN CORPUSCULAR HGB CONC 35.2 g/dl (31.0-37.0); MEAN PLATELET VOLUME 9.5 fl (7.0-11.0); MONO # 1.2 (0.1-0.6); MONO % 15.7 % (1.0-6.0); RBC 4.79 10^6/uL (3.5-6.1); RED CELL DISTRIBUTION WIDTH 14.3 % (11.5-14.5); WHITE BLOOD COUNT 7.5 10^3/ul (4.5-11.0)
[2017-10-06 07:57] LABS: ALB/GLOB RATIO 1.4 (1.1-1.8); ALBUMIN 4.4 g/dL (3.0-4.8); ALT/SGPT 131 U/L (7-56); AST/SGOT 109 U/L (17-59); BLOOD UREA NITROGEN 7 mg/dL (7-21); GFR AFRICAN-AMERICAN > 60; GFR NON-AFRICAN AMERICAN > 60
[2017-10-06] MEDS: Multivitamin Therapeutic Tab PO SCH (08:19)
[2017-10-06] MEDS: Enoxaparin 30 mg Syringe SC SCH (11:47)
--- NOTE | 2017-10-06 11:50 | CP.PCM.PN ---
<Dieter Mcmullen - Last Filed: 10/06/17 11:42> Subjective - Date & Time of Evaluation Date of Evaluation: 10/06/17 Time of Evaluation: 09:30 - Subjective Subjective: PGY1 Medicine Note for Dr. Cunningham Patient seen and examined at bedside this morning. Nursing staff report that patient was requiring all of his prn medications overnight. It was reported that the patient was still experiencing visual hallucinations stating that he thought people were smoking at the nursing station this morning. Patient is still requesting that he goes home to be with his family. He is more coherent today but patient's symptoms have waxed and wane throughout his admission. Patient has no complaints at this time. Denies fevers, chills, nausea, vomiting , diarrhea, constipation, chest pain, shortness of breath, palpitations, abdominal pain, headaches, numbness, tingling or diaphoresis. Objective - Vital Signs/Intake and Output Vital Signs (last 24 hours): Temp Pulse Resp BP Pulse Ox 97.4 F L 68 20 119/76 100 10/06/17 07:48 10/06/17 07:48 10/06/17 07:48 10/06/17 07:48 10/06/17 07:48 Intake and Output: 10/06/17 10/06/17 06:59 18:59 Intake Total 1140 Balance 1140 - Medications Medications: Current Medications Al Hydrox/Mg Hydrox/Simethicone 30 ml/Diphenhydramine HCl 75 mg/Lidocaine 30 ml 0 ml PO Q2H PRN PRN Reason: Mouth/Throat Pain Last Admin: 10/06/17 02:22 Dose: 5 ml Enoxaparin Sodium (Lovenox) 30 mg SC DAILY [facility] PRN Reason: Protocol Last Admin: 10/05/17 09:51 Dose: 30 mg Famotidine (Pepcid) 20 mg PO BID [facility] Last Admin: 10/06/17 10:20 Dose: 20 mg Folic Acid (Folic Acid) 1 mg PO DAILY [facility] Last Admin: 10/06/17 10:20 Dose: 1 mg Ibuprofen (Motrin Tab) 400 mg PO Q6H PRN PRN Reason: Pain, moderate (4-7) Last Admin: 10/03/17 16:05 Dose: 400 mg Lorazepam (Ativan) 1 mg PO Q8H [facility] PRN Reason: Protocol Last Admin: 10/06/17 10:20 Dose: 1 mg Lorazepam (Ativan) 2 mg IVP Q3H PRN; Protocol PRN Reason: Symptoms of alcohol withdrawl Lorazepam (Ativan) 2 mg IVP Q4H [facility] PRN Reason: Protocol Multivitamins (Thera Tab) 1 tab PO 0800 [facility] Last Admin: 10/06/17 08:19 Dose: 1 tab Nicotine (Nicoderm Cq) 1 patch TD DAILY [facility] Last Admin: 10/06/17 10:20 Dose: 1 patch Ondansetron HCl (Zofran Inj) 4 mg IVP Q6 PRN PRN Reason: Nausea/Vomiting Last Admin: 10/01/17 15:56 Dose: 4 mg Thiamine HCl (Vitamin B1 Tab) 50 mg PO DAILY [facility] Last Admin: 10/06/17 10:20 Dose: 50 mg Ziprasidone (Geodon Inj) 15 mg IM Q12 PRN; Protocol PRN Reason: Anxiety Last Admin: 10/05/17 05:11 Dose: 15 mg - Labs Labs: 10/06/17 07:00 10/06/17 07:00 PT 11.5 SECONDS (9.4-12.5) 10/01/17 11:40 INR 1.00 (0.93-1.08) 10/01/17 11:40 APTT 28.9 Seconds (25.1-36.5) 10/01/17 11:40 - Constitutional Appears: Non-toxic, No Acute Distress - Head Exam Head Exam: NORMOCEPHALIC. absent: ATRAUMATIC (bandaid on back of head) - Eye Exam Eye Exam: absent: Conjunctival injection (right eye improved.) Additional comments: patient's eye lids are half closed most likely secondary to sedation effect of medications - ENT Exam ENT Exam: Mucous Membranes Moist - Respiratory Exam Respiratory Exam: Clear to Ausculation Bilateral, NORMAL BREATHING PATTERN. absent: Accessory Muscle Use, Rales, Rhonchi, Wheezes, Respiratory Distress - Cardiovascular Exam Cardiovascular Exam: REGULAR RHYTHM, +S1, +S2 - GI/Abdominal Exam GI & Abdominal Exam: Soft, Normal Bowel Sounds. absent: Distended, Firm, Guarding, Rigid, Tenderness - Extremities Exam Extremities Exam: absent: Calf Tenderness, Pedal Edema - Neurological Exam Neurological Exam: Alert, Awake, Oriented x3 Additional comments: no tremors noted at this time. - Psychiatric Exam Additional comments: mildy sedated, smiling and laughing - Skin Skin Exam: Dry, Warm Assessment and Plan - Assessment and Plan (Free Text) Assessment: 37M with PMH of ETOH abuse [place] [facility] [place] likely secondary to EtOH withdrawal Plan: S/p seizure in setting of ETOH abuse CK down trending FU EEG - official report pending CIWA protocol Ativan 2mg IVP q6h - increased back to 2mg IVP q4h octavia due to visual hallucinations Ativan 1mg PO q8h Ativan 2mg IVP q3h prn Zofran Aspiration precautions Seizure precautions Fall risk protocol ETOH cessation education provided Neuro consulted- no intervention ETOH withdrawal Psych consulted, Dr. Valladares Ativan 2mg IVP q6h octavia - increased back to 2mg IVP q4h octavia due to visual hallucinations Ativan 1mg PO q8h Ativan 2mg IVP q3h prn Geodon 15mg IM q12h prn Multivitamin Folic acid Vitamin B1 Zofran 1:1 sitter for patient safety L shoulder pain s/p seizure Tylenol PRN X-ray neg Monitor Transaminitis in setting of ETOH abuse/mild ETOH hepatitis Still elevated - downtrending Monitor Bacterial Conjunctivitis - right eye - resolved Tobramycin 0.3% 2 drops in right eye daily q4h - discontinued resolved - no mucopurulent drainage noted today. continue to monitor Diarrhea C diff neg Monitor - most likely 2/2 hx of alcohol abuse Nicotine abuse Nicotine patch Monitor GI/DVT ppx SCD Pepcid Lovenox Advanced diet/monitor for tolerance PT evaluation DISPO: Patient's symptoms are still waxing and waning. Patient needs to continued monitoring for resolution of symptoms of alcohol withdrawal. Patient's , Callie Wright, does not want any medical information shared with patient's family unless she is present. She reports that when the hospital calls , people will pretend to be her so whoever is calling should ask for a code word. The code word is "One". She does not go by Rufino Rita, she goes by Ms. Wright. Case discussed with Dr. Marisa Mcmullen PGY1 <Jj Cunningham - Last Filed: 10/06/17 15:20> Objective - Vital Signs/Intake and Output Vital Signs (last 24 hours): Temp Pulse Resp BP Pulse Ox 97.4 F L 68 20 119/76 100 10/06/17 07:48 10/06/17 07:48 10/06/17 07:48 10/06/17 07:48 10/06/17 07:48 Intake and Output: 10/06/17 10/06/17 06:59 18:59 Intake Total 1140 Balance 1140 - Medications Medications: Current Medications Al Hydrox/Mg Hydrox/Simethicone 30 ml/Diphenhydramine HCl 75 mg/Lidocaine 30 ml 0 ml PO Q2H PRN PRN Reason: Mouth/Throat Pain Last Admin: 10/06/17 12:27 Dose: 15 ml Enoxaparin Sodium (Lovenox) 30 mg SC DAILY [facility] PRN Reason: Protocol Last Admin: 10/06/17 11:47 Dose: 30 mg Famotidine (Pepcid) 20 mg PO BID [facility] Last Admin: 10/06/17 10:20 Dose: 20 mg Folic Acid (Folic Acid) 1 mg PO DAILY [facility] Last Admin: 10/06/17 10:20 Dose: 1 mg Ibuprofen (Motrin Tab) 400 mg PO Q6H PRN PRN Reason: Pain, moderate (4-7) Last Admin: 10/03/17 16:05 Dose: 400 mg Lorazepam (Ativan) 1 mg PO Q8H [facility] PRN Reason: Protocol Last Admin: 10/06/17 10:20 Dose: 1 mg Lorazepam (Ativan) 2 mg IVP Q3H PRN; Protocol PRN Reason: Symptoms of alcohol withdrawl Lorazepam (Ativan) 2 mg IVP Q4H [facility] PRN Reason: Protocol Last Admin: 10/06/17 12:23 Dose: 2 mg Multivitamins (Thera Tab) 1 tab PO 0800 [facility] Last Admin: 10/06/17 08:19 Dose: 1 tab Nicotine (Nicoderm Cq) 1 patch TD DAILY [facility] Last Admin: 10/06/17 10:20 Dose: 1 patch Ondansetron HCl (Zofran Inj) 4 mg IVP Q6 PRN PRN Reason: Nausea/Vomiting Last Admin: 10/01/17 15:56 Dose: 4 mg Thiamine HCl (Vitamin B1 Tab) 50 mg PO DAILY [facility] Last Admin: 10/06/17 10:20 Dose: 50 mg Ziprasidone (Geodon Inj) 15 mg IM Q12 PRN; Protocol PRN Reason: Anxiety Last Admin: 10/06/17 11:49 Dose: 15 mg - Labs Labs: 10/06/17 07:00 10/06/17 07:00 PT 11.5 SECONDS (9.4-12.5) 10/01/17 11:40 INR 1.00 (0.93-1.08) 10/01/17 11:40 APTT 28.9 Seconds (25.1-36.5) 10/01/17 11:40 Attending/Attestation - Attestation I have personally seen and examined this patient.: Yes I have fully participated in the care of the patient.: Yes I have reviewed all pertinent clinical information, including history, physical exam and plan: Yes Notes (Text): 10/06/17 15:18 Attending note; Patient seen and examined with resident. patient is alert and awake. But confused at times. Still with alcohol withdrawal symptoms and confusion at times. Continue IV ativan. Continue Geodon. Psychiatric evaluation requested. on one-to-one observation. continue to monitor closely. Active smoking ; smoking cessation is strongly advised .on NicoDerm patch . LFTs improving. CPK improved. Upon discharge the patient will follow up with PMD in [place].
[2017-10-07 07:04] LABS: BASO # 0.07 K/mm3 (0.0-2.0); EOS # 0.5 (0.0-0.7); GRAN # 3.13 (1.4-6.5); GRAN % 43.6 % (50.0-68.0); HEMOGLOBIN 14.9 g/dL (14.0-18.0); LYMPH # 2.2 (1.2-3.4); LYMPH % 30.2 % (22.0-35.0); MEAN CELL VOLUME 90.3 fl (80.0-105.0); MEAN CORPUSCULAR HEMOGLOBIN 31.4 pg (25.0-35.0); MEAN CORPUSCULAR HGB CONC 34.7 g/dl (31.0-37.0); MEAN PLATELET VOLUME 9.3 fl (7.0-11.0); MONO # 1.3 (0.1-0.6); MONO % 18.2 % (1.0-6.0); RBC 4.75 10^6/uL (3.5-6.1); RED CELL DISTRIBUTION WIDTH 14.3 % (11.5-14.5); WHITE BLOOD COUNT 7.2 10^3/ul (4.5-11.0)
[2017-10-07 08:03] LABS: ALB/GLOB RATIO 1.3 (1.1-1.8); ALBUMIN 4.3 g/dL (3.0-4.8); ALT/SGPT 144 U/L (7-56); AST/SGOT 109 U/L (17-59); BLOOD UREA NITROGEN 11 mg/dL (7-21); CALCIUM 10.1 mg/dL (8.4-10.5); GFR AFRICAN-AMERICAN > 60; GFR NON-AFRICAN AMERICAN > 60
[2017-10-07] MEDS: Enoxaparin 30 mg Syringe SC SCH (09:22)
[2017-10-07] MEDS: Multivitamin Therapeutic Tab PO SCH (09:23)
--- NOTE | 2017-10-07 13:02 | CP.PCM.PN ---
<Robin Howard - Last Filed: 10/07/17 15:15> Subjective - Date & Time of Evaluation Date of Evaluation: 10/07/17 Time of Evaluation: 12:58 - Subjective Subjective: Patient seen and examined at bedside. Per nursing no acute events occurred overnight. Per nursing the patient didn't sleep a lot overnight, however wasn' t combative. The patient reports feeling better. The patient is still reporting visual hallucinations. The patient denies any chest pain, fevers, chills, nausea, vomiting, or any other complaints. Objective - Vital Signs/Intake and Output Vital Signs (last 24 hours): Temp Pulse Resp BP Pulse Ox 98.8 F 100 H 18 143/94 H 100 10/07/17 06:00 10/07/17 06:00 10/07/17 06:00 10/07/17 06:00 10/07/17 06:00 Intake and Output: 10/07/17 10/07/17 06:59 18:59 Intake Total 720 Balance 720 - Medications Medications: Current Medications Al Hydrox/Mg Hydrox/Simethicone 30 ml/Diphenhydramine HCl 75 mg/Lidocaine 30 ml 0 ml PO Q2H PRN PRN Reason: Mouth/Throat Pain Last Admin: 10/06/17 12:27 Dose: 15 ml Enoxaparin Sodium (Lovenox) 30 mg SC DAILY [facility] PRN Reason: Protocol Last Admin: 10/07/17 09:22 Dose: 30 mg Famotidine (Pepcid) 20 mg PO BID [facility] Last Admin: 10/07/17 09:24 Dose: 20 mg Folic Acid (Folic Acid) 1 mg PO DAILY [facility] Last Admin: 10/07/17 09:23 Dose: 1 mg Ibuprofen (Motrin Tab) 400 mg PO Q6H PRN PRN Reason: Pain, moderate (4-7) Last Admin: 10/03/17 16:05 Dose: 400 mg Lorazepam (Ativan) 2 mg IVP Q3H PRN; Protocol PRN Reason: Symptoms of alcohol withdrawl Last Admin: 10/07/17 09:38 Dose: 2 mg Lorazepam (Ativan) 2 mg IVP Q8 [facility] PRN Reason: Protocol Last Admin: 10/07/17 06:00 Dose: Not Given Multivitamins (Thera Tab) 1 tab PO 0800 [facility] Last Admin: 10/07/17 09:23 Dose: 1 tab Nicotine (Nicoderm Cq) 1 patch TD DAILY [facility] Last Admin: 10/07/17 09:22 Dose: 1 patch Ondansetron HCl (Zofran Inj) 4 mg IVP Q6 PRN PRN Reason: Nausea/Vomiting Last Admin: 10/01/17 15:56 Dose: 4 mg Quetiapine Fumarate (Seroquel) 25 mg PO Q12 [facility] PRN Reason: Protocol Last Admin: 10/07/17 09:23 Dose: 25 mg Quetiapine Fumarate (Seroquel) 50 mg PO HS [facility] PRN Reason: Protocol Last Admin: 10/06/17 21:52 Dose: 50 mg Thiamine HCl (Vitamin B1 Tab) 50 mg PO DAILY [facility] Last Admin: 10/07/17 09:25 Dose: 50 mg Ziprasidone (Geodon Inj) 15 mg IM Q12 PRN; Protocol PRN Reason: Anxiety Last Admin: 10/06/17 11:49 Dose: 15 mg - Labs Labs: 10/07/17 06:40 10/07/17 06:40 PT 11.5 SECONDS (9.4-12.5) 10/01/17 11:40 INR 1.00 (0.93-1.08) 10/01/17 11:40 APTT 28.9 Seconds (25.1-36.5) 10/01/17 11:40 - Head Exam Head Exam: ATRAUMATIC, NORMAL INSPECTION, NORMOCEPHALIC - Eye Exam Eye Exam: EOMI, Normal appearance, PERRL Pupil Exam: NORMAL ACCOMODATION - ENT Exam ENT Exam: Mucous Membranes Moist, Normal Oropharynx - Respiratory Exam Respiratory Exam: Clear to Ausculation Bilateral, NORMAL BREATHING PATTERN - Cardiovascular Exam Cardiovascular Exam: REGULAR RHYTHM, +S1, +S2 - GI/Abdominal Exam GI & Abdominal Exam: Soft, Normal Bowel Sounds - Back Exam Back Exam: NORMAL INSPECTION. absent: CVA tenderness (R), paraspinal tenderness - Neurological Exam Neurological Exam: Alert, Awake, CN II-XII Intact, Normal Gait, Oriented x3 - Psychiatric Exam Psychiatric exam: Normal Affect, Normal Mood - Skin Skin Exam: Dry, Intact Assessment and Plan - Assessment and Plan (Free Text) Assessment: 37M with PMH of ETOH abuse [place] [facility] [place] likely secondary to EtOH withdrawal Plan: S/p seizure in setting of ETOH abuse CK down trending FU EEG - official report pending CIWA protocol Ativan 2mg PO q8h Ativan 2mg IVP q3h prn Zofran Aspiration precautions Seizure precautions Fall risk protocol ETOH cessation education provided Neuro consulted- no intervention ETOH withdrawal Psych consulted, Dr. Valladares. Rec's appreciated. Ativan 2mg PO q8h Ativan 2mg IVP q3h prn Geodon 15mg IM q12h prn Multivitamin Folic acid Vitamin B1 Zofran 1:1 sitter for patient safety L shoulder pain s/p seizure Tylenol PRN X-ray neg Monitor Transaminitis in setting of ETOH abuse/mild ETOH hepatitis Still elevated - downtrending Monitor Diarrhea C diff neg Monitor - most likely 2/2 hx of alcohol abuse Patient reports an improvement in symptoms. Will monitor. Nicotine abuse Nicotine patch Monitor GI/DVT ppx SCD Pepcid Lovenox Advanced diet/monitor for tolerance PT evaluation DISPO: Patient's symptoms are still waxing and waning. Patient needs to continued monitoring for resolution of symptoms of alcohol withdrawal. Patient's , Callie Wright, does not want any medical information shared with patient's family unless she is present. She reports that when the hospital calls , people will pretend to be her so whoever is calling should ask for a code word. The code word is "One". She does not go by Mrs. Salinas, she goes by Ms. Wright. Case discussed with Dr. Cunningham <Jj Cunningham - Last Filed: 10/07/17 16:40> Objective - Vital Signs/Intake and Output Vital Signs (last 24 hours): Temp Pulse Resp BP Pulse Ox 98.8 F 100 H 18 143/94 H 100 10/07/17 06:00 10/07/17 06:00 10/07/17 06:00 10/07/17 06:00 10/07/17 06:00 Intake and Output: 10/07/17 10/07/17 06:59 18:59 Intake Total 720 Balance 720 - Medications Medications: Current Medications Al Hydrox/Mg Hydrox/Simethicone 30 ml/Diphenhydramine HCl 75 mg/Lidocaine 30 ml 0 ml PO Q2H PRN PRN Reason: Mouth/Throat Pain Last Admin: 10/06/17 12:27 Dose: 15 ml Enoxaparin Sodium (Lovenox) 30 mg SC DAILY [facility] PRN Reason: Protocol Last Admin: 10/07/17 09:22 Dose: 30 mg Famotidine (Pepcid) 20 mg PO BID [facility] Last Admin: 10/07/17 09:24 Dose: 20 mg Folic Acid (Folic Acid) 1 mg PO DAILY [facility] Last Admin: 10/07/17 09:23 Dose: 1 mg Ibuprofen (Motrin Tab) 400 mg PO Q6H PRN PRN Reason: Pain, moderate (4-7) Last Admin: 10/03/17 16:05 Dose: 400 mg Lorazepam (Ativan) 2 mg IVP Q3H PRN; Protocol PRN Reason: Symptoms of alcohol withdrawl Last Admin: 10/07/17 09:38 Dose: 2 mg Lorazepam (Ativan) 2 mg IVP Q6H [facility] PRN Reason: Protocol Multivitamins (Thera Tab) 1 tab PO 0800 [facility] Last Admin: 10/07/17 09:23 Dose: 1 tab Nicotine (Nicoderm Cq) 1 patch TD DAILY [facility] Last Admin: 10/07/17 09:22 Dose: 1 patch Ondansetron HCl (Zofran Inj) 4 mg IVP Q6 PRN PRN Reason: Nausea/Vomiting Last Admin: 10/01/17 15:56 Dose: 4 mg Quetiapine Fumarate (Seroquel) 50 mg PO HS [facility] PRN Reason: Protocol Last Admin: 10/06/17 21:52 Dose: 50 mg Quetiapine Fumarate (Seroquel) 50 mg PO BID [facility] PRN Reason: Protocol Thiamine HCl (Vitamin B1 Tab) 50 mg PO DAILY [facility] Last Admin: 10/07/17 09:25 Dose: 50 mg Ziprasidone (Geodon Inj) 15 mg IM Q12 PRN; Protocol PRN Reason: Anxiety Last Admin: 10/06/17 11:49 Dose: 15 mg Zolpidem Tartrate (Ambien) 5 mg PO HS [facility] PRN Reason: Protocol - Labs Labs: 10/07/17 06:40 10/07/17 06:40 PT 11.5 SECONDS (9.4-12.5) 10/01/17 11:40 INR 1.00 (0.93-1.08) 10/01/17 11:40 APTT 28.9 Seconds (25.1-36.5) 10/01/17 11:40 Attending/Attestation - Attestation I have personally seen and examined this patient.: Yes I have fully participated in the care of the patient.: Yes I have reviewed all pertinent clinical information, including history, physical exam and plan: Yes Notes (Text): 10/07/17 16:37 Attending note; Patient seen and examined with resident. patient is alert and awake. walking around. confused at times. hallucinating on and off. Still with alcohol withdrawal symptoms and confusion at times. Continue IV ativan. Continue Geodon. Psychiatric evaluation appreciated. Started on Seroquel. Continue Ativan [id number]. on one-to-one observation. continue to monitor closely. Active smoking ; smoking cessation is strongly advised .on NicoDerm patch . LFTs improving. CPK improved. Hepatitis profile negative. Upon discharge the patient will follow up with PMD in [place]. 10/07/17 16:39
[2017-10-07 13:08] LABS: HEPATITIS B SURFACE AG Negative (NEGATIVE)
[2017-10-07 13:14] LABS: HEPATITIS A IGM NEGATIVE (NEGATIVE); HEPATITIS B CORE AB NEGATIVE (NEGATIVE)
[2017-10-07 13:25] LABS: HEPATITIS C ANTIBODY NEGATIVE (NEGATIVE)
--- NOTE | 2017-10-08 01:20 | EEG ---
DATE: 10/03/2017 Technical Information: Electrodes were placed according to the 10-20 [employer] electrode system by fibre technologist. Total of 23 electrodes (21 EEG and 2 EKG) were placed. EEG activity was digitally recorded referentially to P1/P2 or A1/A2 electrodes. Continuous monitoring with EEG was performed using digital analysis for spike detection. The [employer] spike and seizure detection algorithms were used for digital EEG analysis throughout the monitoring period to screen the EEG in real-time and dominic the data file with pointers to electrographic seizures and interictal discharges. EEG was screened for electrographic seizures and interictal discharges by a technologist. Physician, epileptologist reviewed detections as well as extensive random samples and whole EEG study in detail. Digital EEG Analysis: Was carried out including FFT (Fast Fourier Transform), R2D2 (Rhythmicity Run Detection and Display), Relative Asymmetry Spectrogram, and voltage plot by the [employer]. The qualitative EEG analysis and the voltage plot mapping were used for detection of foci of paroxysmal and abnormal electrical cortical activity. General Description: Background Rhythm: There is a well-formed, 8-10 Hz posterior dominant rhythm that is reactive, symmetric, and attenuates with eye opening. There was a normal amount of frontal beta noted bilaterally. There is no sleep recorded. Activation Procedures: Photic stimulation: There is no driving noted. Hyperventilation: There is slowing noted that is self-remitted. Abnormal Activity: There are no focal epileptiform discharges noted. No clinical or subclinical seizures noted. IMPRESSION: This is a normal awake and drowsy EEG. Clinical correlation is required. Isa Lion MD [facility]
--- NOTE | 2017-10-08 03:27 | CON ---
DATE: 10/07/2017 HISTORY OF PRESENT ILLNESS: The patient is a 37-year-old male with not known previous psychiatric history, most likely, the patient has severe alcohol use disorder as per collateral information from the patient's . The patient was drinking three pints of vodka daily since age of 12. The patient was admitted on the medical side for evaluation of shakiness, possible alcohol withdrawal seizures. The patient was on Precedex. The patient was downgraded to the medical side. Psych consult was called for evaluation of change in mental status and visual hallucinations. This property underwriter attempted to speak to the patient. The patient presented to be psychotic, disorganized. The patient is restless, keep moving back and forth. The patient preoccupied looking in the window. The patient reported that there is his in the car with the kids, but there is no in the car outside. The patient also reported "look there are kids in other room," obviously there is no kids in other room. The patient is actively hallucinating. The patient is currently on one-to-one. The patient said that he does not have history of mental illness and he was not drinking that much lately. Alcohol level on 10/01 was 88. The rest is negative for any substances. This property underwriter had prolonged conversation with Dr. Cunningham, discuss treatment plan in details, most likely the patient is in delirium tremens. VITAL SIGNS: Reviewed. Temperature 98.8, pulse is 101, blood pressure 143/94, respirations 18, oxygen saturation is 100. MEDICATIONS: Reviewed. The patient is on Lovenox, Pepcid, folic acid, Motrin, Ativan 2 mg IV push every 3 hours p.r.n. as well as this property underwriter will increase it to 2 mg IV push every 6 hours scheduled, multivitamins, Nicoderm, Zofran, Seroquel will be increased to 50 mg twice a day and 50 mg at the nighttime. The patient is on thiamine as well as Geodon. Geodon last time was given on 10/06 at 11:49, it was yesterday. LABORATORY DATA: Labs reviewed. Most recent was from today. Chemistry reviewed. AST and ALT is elevated 109 as well as 144 respectively. Urinalysis showed blood, as well as urobilinogen 1. Toxicology, alcohol 88. Serology is negative. MENTAL STATUS EXAMINATION: The patient appears to be alert, restless. No eye contact. The patient is actively hallucinating. Visual hallucinations of kids as well as his with the kids in the car, which is not true. The patient is paranoid, guarded. Speech was overproductive. No eye contact. Insight and judgment seems to be poor. Impulses are unpredictable. IMPRESSION: The patient is in delirium tremens. PLAN: Fishing Rod Assembler consultation is recommended. We will continue multivitamins, thiamine and folic acid and IV hydration. Ativan [id number] need to be given to the patient as well as p.r.n. Seroquel was increased. Ambien will be given at the nighttime for sleep. The patient should be continued on one-to-one. Thank you very much for letting me participate in care of your patient. We will follow up and advise accordingly. Yolanda Alonso MD MTDD
[2017-10-08 07:50] LABS: ALBUMIN 4.4 g/dL (3.0-4.8); BLOOD UREA NITROGEN 11 mg/dL (7-21); CALCIUM 9.6 mg/dL (8.4-10.5); GFR AFRICAN-AMERICAN > 60; GFR NON-AFRICAN AMERICAN > 60
[2017-10-08 07:51] LABS: ALB/GLOB RATIO 1.5 (1.1-1.8); ALT/SGPT 129 U/L (7-56); AST/SGOT 87 U/L (17-59)
[2017-10-08 07:59] LABS: BASO # 0.11 K/mm3 (0.0-2.0); BASO % 1.7 % (0.0-3.0); EOS # 0.5 (0.0-0.7); EOS % 7.9 % (1.5-5.0); GRAN # 2.42 (1.4-6.5); GRAN % 38.2 % (50.0-68.0); HEMOGLOBIN 14.8 g/dL (14.0-18.0); LYMPH % 31.9 % (22.0-35.0); MEAN CELL VOLUME 91.5 fl (80.0-105.0); MEAN CORPUSCULAR HEMOGLOBIN 31.6 pg (25.0-35.0); MEAN CORPUSCULAR HGB CONC 34.6 g/dl (31.0-37.0); MEAN PLATELET VOLUME 9.2 fl (7.0-11.0); MONO # 1.3 (0.1-0.6); MONO % 20.3 % (1.0-6.0); PLATELET COUNT 259 10^3/uL (120.0-450.0); RBC 4.68 10^6/uL (3.5-6.1); RED CELL DISTRIBUTION WIDTH 14.3 % (11.5-14.5); WHITE BLOOD COUNT 6.3 10^3/ul (4.5-11.0)
[2017-10-08] MEDS: Multivitamin Therapeutic Tab PO SCH (08:21)
[2017-10-08 08:28] LABS: ATYPICAL LYMPHOCYTE 3 % (0.0-0.0); BASOPHIL 1 % (0.0-1.0); EOSINOPHIL 4 % (0.0-3.0); LYMPHOCYTE 31 % (22.0-35.0); MONOCYTE 16 % (1.0-6.0); NEUTROPHIL 45 % (50.0-70.0); PLATELET ESTIMATE NORMAL (NORMAL)
[2017-10-08] MEDS: Enoxaparin 30 mg Syringe SC SCH (10:41)
--- NOTE | 2017-10-08 15:34 | CP.PCM.PN ---
<LeeHotevilla - Last Filed: 10/08/17 15:35> Subjective - Date & Time of Evaluation Date of Evaluation: 10/08/17 Time of Evaluation: 15:32 - Subjective Subjective: Patient seen and examined at bedside. Per nursing no acute events occurred overnight. Patient denies any visual hallucinations, however sitter reports patient saying he sees kids in his room. He denies any chest pain, shortness of breath, fevers, chills, nausea, vomiting, changes in vision, syncopal episodes, or any other complaints. Objective - Vital Signs/Intake and Output Vital Signs (last 24 hours): Temp Pulse Resp BP Pulse Ox 98.4 F 82 18 157/104 H 99 10/08/17 14:00 10/08/17 14:00 10/08/17 14:00 10/08/17 14:00 10/08/17 14:00 Intake and Output: 10/08/17 10/08/17 06:59 18:59 Intake Total 360 Balance 360 - Medications Medications: Current Medications Al Hydrox/Mg Hydrox/Simethicone 30 ml/Diphenhydramine HCl 75 mg/Lidocaine 30 ml 0 ml PO Q2H PRN PRN Reason: Mouth/Throat Pain Last Admin: 10/06/17 12:27 Dose: 15 ml Enoxaparin Sodium (Lovenox) 30 mg SC DAILY [facility] PRN Reason: Protocol Last Admin: 10/08/17 10:41 Dose: 30 mg Famotidine (Pepcid) 20 mg PO BID [facility] Last Admin: 10/08/17 10:41 Dose: 20 mg Folic Acid (Folic Acid) 1 mg PO DAILY [facility] Last Admin: 10/08/17 10:41 Dose: 1 mg Ibuprofen (Motrin Tab) 400 mg PO Q6H PRN PRN Reason: Pain, moderate (4-7) Last Admin: 10/03/17 16:05 Dose: 400 mg Lorazepam (Ativan) 2 mg IVP Q3H PRN; Protocol PRN Reason: Symptoms of alcohol withdrawl Last Admin: 10/07/17 09:38 Dose: 2 mg Lorazepam (Ativan) 1 mg IVP Q6H ANDREZ PRN Reason: Protocol Last Admin: 10/08/17 15:26 Dose: Not Given Multivitamins (Thera Tab) 1 tab PO 0800 [facility] Last Admin: 10/08/17 08:21 Dose: 1 tab Nicotine (Nicoderm Cq) 1 patch TD DAILY [facility] Last Admin: 10/08/17 10:41 Dose: 1 patch Ondansetron HCl (Zofran Inj) 4 mg IVP Q6 PRN PRN Reason: Nausea/Vomiting Last Admin: 10/01/17 15:56 Dose: 4 mg Quetiapine Fumarate (Seroquel) 50 mg PO HS [facility]RE[facility] PRN Reason: Protocol Last Admin: 10/07/17 21:30 Dose: 25 mg Quetiapine Fumarate (Seroquel) 50 mg PO BID [facility] PRN Reason: Protocol Last Admin: 10/08/17 10:43 Dose: 50 mg Thiamine HCl (Vitamin B1 Tab) 100 mg PO BID [facility] Ziprasidone (Geodon Inj) 15 mg IM Q12 PRN; Protocol PRN Reason: Anxiety Last Admin: 10/06/17 11:49 Dose: 15 mg Zolpidem Tartrate (Ambien) 5 mg PO HS [facility] PRN Reason: Protocol Last Admin: 10/07/17 21:29 Dose: 5 mg - Labs Labs: 10/08/17 07:22 10/08/17 06:30 PT 11.5 SECONDS (9.4-12.5) 10/01/17 11:40 INR 1.00 (0.93-1.08) 10/01/17 11:40 APTT 28.9 Seconds (25.1-36.5) 10/01/17 11:40 - Head Exam Head Exam: ATRAUMATIC, NORMAL INSPECTION, NORMOCEPHALIC - Eye Exam Eye Exam: EOMI, Normal appearance, PERRL Pupil Exam: NORMAL ACCOMODATION - ENT Exam ENT Exam: Mucous Membranes Moist - Respiratory Exam Respiratory Exam: Clear to Ausculation Bilateral, NORMAL BREATHING PATTERN. absent: Prolonged Expiratory Phase, Respiratory Distress - Cardiovascular Exam Cardiovascular Exam: REGULAR RHYTHM, +S1, +S2 - GI/Abdominal Exam GI & Abdominal Exam: Soft, Normal Bowel Sounds - Extremities Exam Extremities Exam: Full ROM. absent: Pedal Edema - Back Exam Back Exam: paraspinal tenderness. absent: CVA tenderness (R) - Neurological Exam Neurological Exam: Alert, Awake, Oriented x3 - Psychiatric Exam Psychiatric exam: Normal Affect, Normal Mood - Skin Skin Exam: Dry, Intact Assessment and Plan - Assessment and Plan (Free Text) Assessment: 37M with PMH of ETOH abuse presents to [facility] for seizure likely secondary to EtOH withdrawal Plan: S/p seizure in setting of ETOH abuse CK down trending EEG shows normal awake and drowsy reading. CIWA protocol Ativan 2mg q8 decreased to 1mg q6h ANDREZ Ativan 2mg IVP q3h prn Aspiration precautions Seizure precautions Fall risk protocol ETOH cessation education provided Neuro consulted- no intervention ETOH withdrawal Patient clinically looks better than yesterday. Patient denies any anxiety, tremors, or diaphoresis. Will continue to monitor. Psych consulted, Dr. Valladares. Rec's appreciated. Will ask for re-evaluation for tomorrow and possible discharge pending rec's. Patient agreeable to Alcoholic anonymous programs. Ativan 1mg q6h ANDREZ Ativan 2mg IVP q3h prn Geodon 15mg IM q12h prn Multivitamin Folic acid Vitamin B1 increased to 100mg PO BID 1:1 sitter for patient safety L shoulder pain s/p seizure X-ray neg Monitor Transaminitis in setting of ETOH abuse/mild ETOH hepatitis -downtrending Monitor Diarrhea C diff neg Monitor - most likely 2/2 hx of alcohol abuse Patient reports an improvement in symptoms. Will monitor. Nicotine abuse Nicotine patch Monitor GI/DVT ppx SCD Pepcid Lovenox PT evaluation appreciated. DISPO: Patient's symptoms are improving. Patient needs to continued monitoring for resolution of symptoms of alcohol withdrawal. Patient's , Callie Wright, does not want any medical information shared with patient's family unless she is present. She reports that when the hospital calls , people will pretend to be her so whoever is calling should ask for a code word. The code word is "One". She does not go by Mrs. Salinas, she goes by Ms. Wright. Case discussed with Dr. Ana Howard, PGY-1 <Elmer Perez - Last Filed: 10/09/17 17:20> Objective - Vital Signs/Intake and Output Vital Signs (last 24 hours): Temp Pulse Resp BP Pulse Ox 98.1 F 94 H 20 139/90 99 10/09/17 06:00 10/09/17 06:00 10/09/17 06:00 10/08/17 23:19 10/09/17 06:00 Intake and Output: 10/09/17 10/09/17 06:59 18:59 Intake Total 840 Balance 840 - Labs Labs: 10/09/17 08:10 10/09/17 08:10 PT 11.5 SECONDS (9.4-12.5) 10/01/17 11:40 INR 1.00 (0.93-1.08) 10/01/17 11:40 APTT 28.9 Seconds (25.1-36.5) 10/01/17 11:40 Attending/Attestation - Attestation I have personally seen and examined this patient.: Yes I have fully participated in the care of the patient.: Yes I have reviewed all pertinent clinical information, including history, physical exam and plan: Yes Notes (Text): 37M with PMH of ETOH abuse presents to [facility] for seizure likely secondary to EtOH withdrawal Plan: S/p seizure in setting of ETOH abuse elevated CPK ETOH withdrawal L shoulder pain s/p seizure no fracture
--- NOTE | 2017-10-08 20:54 | PN ---
DATE: 10/08/2017 SUBJECTIVE: This patient was followed up today. The patient is in delirium stage 2. The patient is having episodes of confusion during the interview by this underwriter solicitation director. The patient did not know where he is. He thought initially that he is in [facility]. The patient also had episodes of confusion and seeing people who were not there and feeling very restless and anxious. The patient's vital signs seem to be under control, but the patient still has elevated blood pressure 157/104, pulse is 82, temperature 98.4, respirations 18, oxygen saturation is 99%. The patient is on Lovenox; Pepcid; folic acid; Motrin; Ativan 2 mg IV push every 3 hours as needed, last time was given yesterday and 1 mg every 6 hours scheduled and the patient did not get any Ativan scheduled today; Zofran; Seroquel 50 mg at the nighttime and 50 mg twice a day; thiamine; and Geodon 15 mg every 12 hours, last dose was given on 10/06/2017. LABORATORY DATA: Reviewed. Most recent was from today. AST and ALT trending down. This underwriter solicitation director would like to emphasize the fact that the patient has no insight into his alcohol addiction. The patient said that he never drinks alcohol but to the medical team, family reported that the patient is drinking about four pints of vodka on daily basis and multiple relatives because of this severe addiction to alcohol. MENTAL STATUS EXAMINATION: The patient was seen and examined. The patient presented alert, disoriented, superficially cooperative. The patient reported that he is not seeing things, not hearing things, but as per one-to-one sitter, the patient was seeing hidden kids in the room, obviously the patient was hallucinating, there are no kids in the room. The patient's mental status waxing and waning. Mood described, "I'm feeling fine." Affect was constricted, somewhat irritable and annoyed. Thought process disorganized. Thought content, the patient denied psychotic symptoms, but obviously has alcohol delirium with visual hallucinations. Insight and judgment seem to be limited. Impulses are unpredictable. IMPRESSION: Alcohol withdrawal delirium, alcohol use disorder. PLAN: Continue current management. Continue current medications. Ativan scheduled needs to be given to the patient. Seroquel should be continued, multivitamins, thiamine, and folic acid. Naltrexone needs to be discussed with the patient, but the patient has poor insight. AA and NA meeting need to be discussed with the patient. This underwriter solicitation director will follow up and advise accordingly. Based on current presentation, the patient lacks capacity to sign against medical advice because the patient does not have basic understanding about his diagnoses and potential risk of leaving against medical advice. Thank you very much for letting me to participate in the care of your patient, discussed with the medical reimbursement manager and nursing staff. Please continue one-to-one observation because the patient's high risk of elopement. Yolanda Alonso MD
[2017-10-08 23:20] VITALS: BP 139/90
[2017-10-09] MEDS: Multivitamin Therapeutic Tab PO SCH (08:30)
[2017-10-09 08:36] LABS: BASO # 0.19 K/mm3 (0.0-2.0); BASO % 2.4 % (0.0-3.0); EOS # 0.6 (0.0-0.7); EOS % 7.5 % (1.5-5.0); GRAN # 2.92 (1.4-6.5); GRAN % 37.2 % (50.0-68.0); HEMOGLOBIN 15.4 g/dL (14.0-18.0); LYMPH # 2.5 (1.2-3.4); LYMPH % 31.8 % (22.0-35.0); MEAN CELL VOLUME 90.7 fl (80.0-105.0); MEAN CORPUSCULAR HEMOGLOBIN 31.7 pg (25.0-35.0); MEAN CORPUSCULAR HGB CONC 34.9 g/dl (31.0-37.0); MEAN PLATELET VOLUME 8.8 fl (7.0-11.0); MONO # 1.7 (0.1-0.6); MONO % 21.1 % (1.0-6.0); RBC 4.86 10^6/uL (3.5-6.1); RED CELL DISTRIBUTION WIDTH 13.8 % (11.5-14.5); WHITE BLOOD COUNT 7.9 10^3/ul (4.5-11.0)
[2017-10-09 08:38] VITALS: PULSE 94; RESP 20; TEMP 98.1; O2SAT 99
[2017-10-09 08:52] LABS: ALB/GLOB RATIO 1.4 (1.1-1.8); ALBUMIN 4.4 g/dL (3.0-4.8); ALT/SGPT 128 U/L (7-56); AST/SGOT 69 U/L (17-59); BLOOD UREA NITROGEN 8 mg/dL (7-21); CALCIUM 9.8 mg/dL (8.4-10.5); GFR AFRICAN-AMERICAN > 60; GFR NON-AFRICAN AMERICAN > 60
[2017-10-09] MEDS: Enoxaparin 30 mg Syringe SC SCH (09:48)
--- NOTE | 2017-10-09 12:01 | PN ---
DATE: 10/09/2017 FOLLOWUP NOTE SUBJECTIVE: The patient was admitted for alcohol withdrawal delirium. The patient is on tapering dose of Ativan as well as Seroquel. Last hallucinations were overnight. The patient still in delirium stage. The patient was followed up today at the morning time. There is some improvement with the patient's presentation. The patient still does not remember the name of the hospital, had difficulty to sustain attention, but overall presented much better to compare with the previous couple of days when the patient was actively hallucinating. Insight into his addiction to alcohol also improving. The patient was more receptive and willing to discuss addition to the alcohol. The patient reported that he was drinking alcohol since age of 12. He stopped abruptly on this Saturday. The patient became confused as well as had seizures on Saturday at work. The patient was educated about alcohol addiction about alcohol withdrawal delirium mortality rate. The patient seems to be receptive. At the same time, the patient has difficulty to stay focused during the conversation. The patient also keep repeating that this service writer advisor bring any information about AA meetings and NA meetings despite the fact that everything was discussed by social economist yesterday and all information was given to the patient yesterday. Discussed with one-to-one sitter. The patient presented better today. No agitation. No aggression. The patient is compliant with medication, able to eat, had good night sleep. Temperature 98.1, pulse is 94, blood pressure 139/90, respirations 20, oxygen saturations 99. Medication is reviewed. Pepcid; folic acid; Motrin; Ativan 2 mg IV push every 3 hours as needed, last dose was on 10/07/2017; Ativan 1 mg IV push every 6 hours scheduled, last time was today; multivitamins; Nicoderm; Zofran; Seroquel 50 mg will be changed twice a day as needed and 50 mg at the nighttime will be left as a test. The patient is on thiamine. Geodon was given to the patient on 10/06/2017, last dose. Ambien 5 mg at the nighttime will be changed as needed for insomnia. MENTAL STATUS EXAMINATION: The patient presented to be more alert, coherent, but difficult to stay focused and difficulty to concentrate. Intermittent eye contact. Speech was underproductive. Thought process still has some disorganized thoughts. Mood described, I feel better. Affect was constricted, but reactive. Mood congruent. Insight and judgment seems to be improving. Impulses are well controlled. IMPRESSION: Most likely, the patient had alcohol withdrawal delirium, which is much better right now. PLAN: Continue current management. Continue current medication. Please start tapering down Ativan by 25% a day. Seroquel will be given as needed 50 mg twice a day, at the nighttime will be given as scheduled. Ambien will be given as needed for insomnia. Multivitamins, thiamine and folic acid should be continued. The patient did not express his interest to be started on naltrexone. Denied any cravings. The patient might benefit from inpatient rehab, but the patient does not want to go there. AA meetings and NA meetings upon discharge. Case was discussed with the social economist as well as medical team and nurses. Thank you very much for letting me participate in the care of your patient. We will follow up with you and advise accordingly. Yolanda Alonso MD
--- NOTE | 2017-10-09 13:10 | CP.PCM.DIS ---
Provider - Provider Date of Admission: 10/01/17 12:57 Attending physician: Jj Cunningham MD Time Spent in preparation of Discharge (in minutes): 45 Hospital Course - Lab Results Lab Results: Micro Results 10/02/17 20:30 Nose MRSA Culture (Admit) - Final MRSA NOT DETECTED 10/02/17 20:26 Stool C. difficile Antigen & Toxin A,B (M - Final Most Recent Lab Values WBC 7.9 10^3/ul (4.5-11.0) D 10/09/17 08:10 RBC 4.86 10^6/uL (3.5-6.1) 10/09/17 08:10 Hgb 15.4 g/dL (14.0-18.0) 10/09/17 08:10 Hct 44.1 % (42.0-52.0) 10/09/17 08:10 MCV 90.7 fl (80.0-105.0) 10/09/17 08:10 MCH 31.7 pg (25.0-35.0) 10/09/17 08:10 MCHC 34.9 g/dl (31.0-37.0) 10/09/17 08:10 RDW 13.8 % (11.5-14.5) 10/09/17 08:10 Plt Count 284 10^3/uL (120.0-450.0) 10/09/17 08:10 MPV 8.8 fl (7.0-11.0) 10/09/17 08:10 Gran % 37.2 % (50.0-68.0) L 10/09/17 08:10 Lymph % (Auto) 31.8 % (22.0-35.0) 10/09/17 08:10 Bailey % (Auto) 21.1 % (1.0-6.0) H 10/09/17 08:10 Eos % (Auto) 7.5 % (1.5-5.0) H 10/09/17 08:10 Baso % (Auto) 2.4 % (0.0-3.0) 10/09/17 08:10 Gran # 2.92 (1.4-6.5) 10/09/17 08:10 Lymph # (Auto) 2.5 (1.2-3.4) 10/09/17 08:10 Bailey # (Auto) 1.7 (0.1-0.6) H 10/09/17 08:10 Eos # (Auto) 0.6 (0.0-0.7) 10/09/17 08:10 Baso # (Auto) 0.19 K/mm3 (0.0-2.0) 10/09/17 08:10 Neutrophils % (Manual) 45 % (50.0-70.0) L 10/08/17 07:22 Lymphocytes % (Manual) 31 % (22.0-35.0) 10/08/17 07:22 Atypical Lymphs % 3 % (0.0-0.0) H 10/08/17 07:22 Monocytes % (Manual) 16 % (1.0-6.0) H 10/08/17 07:22 Eosinophils % (Manual) 4 % (0.0-3.0) H 10/08/17 07:22 Basophils % (Manual) 1 % (0.0-1.0) 10/08/17 07:22 Platelet Evaluation Normal (NORMAL) 10/08/17 07:22 PT 11.5 SECONDS (9.4-12.5) 10/01/17 11:40 INR 1.00 (0.93-1.08) 10/01/17 11:40 APTT 28.9 Seconds (25.1-36.5) 10/01/17 11:40 pCO2 32 mm/Hg (35-45) L 10/02/17 15:15 pO2 181.0 mm/Hg (80-100) H 10/02/17 15:15 HCO3 23.3 mmol/L (21-28) 10/02/17 15:15 ABG pH 7.47 (7.35-7.45) H 10/02/17 15:15 ABG Total CO2 24.3 mmol.L (22-28) 10/02/17 15:15 ABG O2 Saturation 99.9 % (95-98) H 10/02/17 15:15 ABG O2 Content 21.0 ML/dl (15-23) 10/02/17 15:15 ABG Base Excess 0.4 mmol/L (-2.0-3.0) 10/02/17 15:15 ABG Hemoglobin 15.2 g/dL (11.7-17.4) 10/02/17 15:15 ABG Carboxyhemoglobin 1.8 % (0.5-1.5) H 10/02/17 15:15 POC ABG HHb (Measured) 0.1 % (0-5) 10/02/17 15:15 ABG Methemoglobin 1.3 % (0.0-3.0) 10/02/17 15:15 ABG O2 Capacity 21.0 mL/dl (16-24) 10/02/17 15:15 Hgb O2 Saturation 96.7 % (95.0-98.0) 10/02/17 15:15 FiO2 28.0 % 10/02/17 15:15 Sodium 139 mmol/L (132-148) 10/09/17 08:10 Potassium 3.9 mmol/L (3.6-5.0) 10/09/17 08:10 Chloride 102 mmol/L (98-107) 10/09/17 08:10 Carbon Dioxide 24 mmol/L (21-33) 10/09/17 08:10 Anion Gap 16 (10-20) 10/09/17 08:10 BUN 8 mg/dL (7-21) 10/09/17 08:10 Creatinine 1.0 mg/dl (0.8-1.5) 10/09/17 08:10 Est GFR ( Amer) > 60 10/09/17 08:10 Est GFR (Non-Af Amer) > 60 10/09/17 08:10 Random Glucose 138 mg/dL (70-110) H 10/09/17 08:10 Calcium 9.8 mg/dL (8.4-10.5) 10/09/17 08:10 Phosphorus 3.4 mg/dL (2.5-4.5) 10/09/17 08:10 Magnesium 2.0 mg/dL (1.7-2.2) 10/07/17 06:40 Total Bilirubin 1.0 mg/dL (0.2-1.3) 10/09/17 08:10 AST 69 U/L (17-59) H D 10/09/17 08:10 ALT 128 U/L (7-56) H 10/09/17 08:10 Alkaline Phosphatase 73 U/L (38-126) 10/09/17 08:10 Lactate Dehydrogenase 1145 U/L (333-699) H 10/01/17 11:40 Total Creatine Kinase 102 U/L (35-230) 10/07/17 06:40 CK-MB (CK-2) 0.3 ng/mL (0.0-3.6) 10/04/17 07:00 CK-MB (CK-2) % Cancelled 10/01/17 11:40 Troponin I < 0.01 ng/mL 10/01/17 11:40 Total Protein 7.6 g/dL (5.8-8.3) 10/09/17 08:10 Albumin 4.4 g/dL (3.0-4.8) 10/09/17 08:10 Globulin 3.1 gm/dL 10/09/17 08:10 Albumin/Globulin Ratio 1.4 (1.1-1.8) 10/09/17 08:10 Amylase 107 U/L (35-125) 10/01/17 11:40 Lipase 576 U/L (23-300) H 10/01/17 11:40 Urine Color Yellow (YELLOW) 10/01/17 13:53 Urine Appearance Turbid (CLEAR) 10/01/17 13:53 Urine pH 6.0 (4.7-8.0) 10/01/17 13:53 Ur Specific Willis 1.025 (1.005-1.035) 10/01/17 13:53 Urine Protein 100 mg/dL (<30 mg/dL) H 10/01/17 13:53 Urine Glucose (UA) Negative mg/dL (NEGATIVE) 10/01/17 13:53 Urine Ketones >=80 mg/dL (NEGATIVE) 10/01/17 13:53 Urine Blood Small (NEGATIVE) H 10/01/17 13:53 Urine Nitrate Negative (NEGATIVE) 10/01/17 13:53 Urine Bilirubin Negative (NEGATIVE) 10/01/17 13:53 Urine Urobilinogen 1.0 E.U./dL (<1 E.U./dL) H 10/01/17 13:53 Ur Leukocyte Esterase Negative Cass/uL (NEGATIVE) 10/01/17 13:53 Urine RBC 0 - 2 /hpf (0-2) 10/01/17 13:53 Urine WBC 0 - 2 /hpf (0-6) 10/01/17 13:53 Salicylates < 1 mg/dL (2.0-20.0) L 10/01/17 11:40 Urine Opiates Screen Negative (NEGATIVE) 10/01/17 13:53 Urine Methadone Screen Negative (NEGATIVE) 10/01/17 13:53 Acetaminophen < 10.0 ug/ml (10.0-20.0) L 10/01/17 11:40 Ur Barbiturates Screen Negative (NEGATIVE) 10/01/17 13:53 Ur Phencyclidine Scrn Negative (NEGATIVE) 10/01/17 13:53 Ur Amphetamines Screen Negative (NEGATIVE) 10/01/17 13:53 U Benzodiazepines Scrn Negative (NEGATIVE) 10/01/17 13:53 U Oth Cocaine Metabols Negative (NEGATIVE) 10/01/17 13:53 U Cannabinoids Screen Negative (NEGATIVE) 10/01/17 13:53 Alcohol, Quantitative 88 mg/dL (0-10) H 10/01/17 11:40 Hepatitis A IgM Ab Negative (NEGATIVE) 10/07/17 06:40 Hep Bs Antigen Negative (NEGATIVE) 10/07/17 06:40 Hep B Core IgM Ab Negative (NEGATIVE) 10/07/17 06:40 Hepatitis C Antibody Negative (NEGATIVE) 10/07/17 06:40 HIV 1&2 Ag/Ab, 4th Gen Nonreactive (Nonreactive) 10/07/17 07:30 - Hospital Course Hospital Course: 37M w/PMH sig for ETOH abuse admitted s/p witnessed seizure at job site. Pt left home for job site at 0830am this morning, no problems. 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 EMS was called. Admits to LOC- does not remember event or what lead up to the event, next thing pt remember is being in ambulance. Admits to Left anterior shoulder pain, baseline shaking of limbs (increased from baseline now), blurry vision, URI symptoms (cough, rhinorhea), hunger, numbness of feet, increased lethargy (as per spouse), nausea (as per spouse). Denies Chest pain, SOB, palpitations, change in bowel or bladder habits, Other complaints. PMH: Denies PSH: Denies All: NKDA SH: Admits to tobacco use - #5-6 daily x 15 yrs; admits to ETOH use- #2-3 beers + hard liquour (2 bottles) daily x 25 yr; denies illicit drug use Hospital Course: Upon admission the patient had a blood alcohol level of 88 and transaminitis. Patient's creatine kinase lipase was elevated. Patient also had a high anion gap metabolic acidosis. Patient was evaluated and determined to have an elevated CIWA score and was subsequently transferred to ICU. Patient was put on precdex and slowly tapered off. Once more stable the patient was moved to the med/surg floor. While there, the patient was was agigated and reporting visual hallucinations to the medical staff. While admitted he had Over three Code Greys while on the floor. Patient was seen by Neurology who ordered an EEG that was normal. The patient was seen by Psychiatry who put changed the ativan dosage and started seroquel. The patient was evaluated and determined to no longer be in delirium tremens. The patient was discharged with the following instructions. Imagin. EEG: normal 2. CT head: no hemorrhage, right posterior parietal scalp contusion 3. Chest xray: no active disease 4. EKG: nsr @96. Discharge Instructions: 1.Advised patient to discharged with instructions to follow up with PMD within one week of discharge. [facility]. 2. Patient provided information regarding Alcoholics Anonymous. Encouraged to follow up. 3. Patient made aware he cannot drive at this time due to his new onset history of seizure. Patient understands he cannot drive until being examined by PMD and Neurology. Patient should be seizure free for six months before driving again. 4. Advised patient to return to hospital for any new or worsening symptoms. Discharge Exam - Head Exam Head Exam: ATRAUMATIC, NORMAL INSPECTION, NORMOCEPHALIC - Eye Exam Eye Exam: EOMI, Normal appearance, PERRL Pupil Exam: NORMAL ACCOMODATION - Respiratory Exam Respiratory Exam: Clear to PA & Lateral, NORMAL BREATHING PATTERN, UNREMARKABLE. absent: Decreased Breath Sounds, Rales, Rhonchi - Cardiovascular Exam Cardiovascular Exam: REGULAR RHYTHM, +S1, +S2 - GI/Abdominal Exam GI & Abdominal Exam: Normal Bowel Sounds, Unremarkable. absent: Hypoactive Bowel Sounds, Organomegaly - Extremities Exam Extremities exam: full ROM, normal inspection - Back Exam Back exam: NORMAL INSPECTION. absent: CVA tenderness (L), CVA tenderness (R), paraspinal tenderness - Neurological Exam Neurological exam: Alert, CN II-XII Intact, Oriented x3 - Psychiatric Exam Psychiatric exam: Normal Affect, Normal Mood - Skin Skin Exam: Dry, Intact, Normal Color, Warm Discharge Plan - Discharge Medications Prescriptions: Folic Acid 1 mg PO DAILY #30 tab Multivitamin [Daily Katy] 1 tab PO DAILY #30 tab Quetiapine Fumarate [Seroquel] 50 mg PO HS #5 tablet Thiamine [Vitamin B1 Tab] 100 mg PO BID #60 tab - Follow Up Plan Condition: SERIOUS Disposition: HOME/ ROUTINE Additional Instructions: 1.Advised patient to discharged with instructions to follow up with PMD within one week of discharge. Patient provided number to [facility] to establish care. 2. Patient provided information regarding Alcoholics Anonymous. Encouraged to follow up. 3. Patient made aware he cannot drive at this time due to his new onset history of seizure. Patient understands he cannot drive until being examined by PMD and Neurology. Patient should be seizure free for six months before driving again. 4. Advised patient to return to hospital for any new or worsening symptoms.
--- NOTE | 2017-10-10 09:03 | CP.PCM.PCO ---
Physician Communication Note - Physician Communication Note Physician Communication Note: pt was d/c with advise to continue seroquel for 5days and stay sober
== END 2017-10-09 15:20 | disposition home or self-care (01) | DRG 897 ==
LOC: ED 11:11 → ERH 12:57 → 2RNO 16:36 → CCU 10-02 14:05 → 5RSO 10-03 10:35
PROVIDERS: ADMIT Internal Medicine; ATTEND Internal Medicine
DX: F10.231 Alcohol dependence with withdrawal delirium (principal); E87.2 Acidosis; R56.9 Unspecified convulsions; S00.01XA Abrasion of scalp, initial encounter; S00.03XA Contusion of scalp, initial encounter; D69.59 Other secondary thrombocytopenia; F17.210 Nicotine dependence, cigarettes, uncomplicated; R19.7 Diarrhea, unspecified; M25.512 Pain in left shoulder; K70.10 Alcoholic hepatitis without ascites; H10.89 Other conjunctivitis; B99.9 Unspecified infectious disease; Y90.4 Blood alcohol level of 80-99 mg/100 ml; W19.XXXA Unspecified fall, initial encounter; Y99.0 Civilian activity done for income or pay; Y93.89 Activity, other specified